=== PATIENT | female | born 1945 | race Caucasian/White ===

== ENCOUNTER 2018-02-05 13:11 | Outpatient (CLI) | payer MEDICARE, BC ==
--- NOTE | 2018-02-05 15:22 | XRAY Report ---
TWO VIEW CHEST: 02/05/2018 COMPARISON: No comparison. INDICATION: Shortness of breath and cough. TECHNIQUE: Two views. FINDINGS: Clear lungs. No pneumothorax or pleural effusion. Mediastinum unremarkable. IMPRESSION: NO EVIDENCE OF ACUTE THORACIC PROCESS. TD: 02/05/2018 15:21 MTDD
== END 2018-02-05 13:12 | disposition home or self-care (01) ==
LOC: DI.S 13:11
PROVIDERS: ATTEND Nurse Practitioner Family
DX: R05 Cough (principal); R06.02 Shortness of breath
CPT/HCPCS: 71046

== ENCOUNTER 2020-04-04 22:19 | Outpatient (CLI) | payer MEDICARE, BC | END 2020-04-04 22:20 | disposition critical access hospital (66) | LOC: EMS 22:19 | PROVIDERS: ATTEND Surgery | DX: R00.2 Palpitations (principal); R00.0 Tachycardia, unspecified | CPT/HCPCS: A0425; A0427 ==

== ENCOUNTER 2020-04-04 22:47 | Observation (INO) | payer MEDICARE, BC ==
--- NOTE | 2020-04-04 22:49 | ED Physician Documentation ---
History of Present Illness - Stated complaint Stated Complaint: AFIB - History obtained from History obtained from: Patient (Patient is a 74-year-old female with a chief complaint of palpitations. Patient was brought in by EMS EMS reports when they arrived she was in A. fib with RVR with a heart rate in the 180s she was given approximately 15 mg of IV diltiazem patient reports a history of atrial fibrillation x1 that has spontaneously resolved. She denies any syncopal episode she does report some chest pain some shortness of breath denies any history of pulmonary embolism or DVT.) Review of Systems Constitutional: reports: Reviewed and negative Eyes: reports: Reviewed and negative Ears: reports: Reviewed and negative Nose: reports: Reviewed and negative Throat: reports: Reviewed and negative Cardiac: reports: Chest pain / pressure, Palpitations Respiratory: reports: Dyspnea GI: reports: Reviewed and negative : reports: Reviewed and negative Skin: reports: Reviewed and negative Musculoskeletal: reports: Reviewed and negative Neurologic: reports: Reviewed and negative Psychiatric: reports: Reviewed and negative Endocrine: reports: Reviewed and negative Immunocompromised: reports: Reviewed and negative PD PAST MEDICAL HISTORY - Present Medications Home Medications: Ambulatory Orders Medication Instructions Recorded Confirmed No Known Home Medications 04/04/20 04/04/20 - Allergies Allergies/Adverse Reactions: Allergies Allergy/AdvReac Type Severity Reaction Status Date / Time melon Allergy Anaphylaxis Verified 04/05/20 05:59 amoxicillin AdvReac Itching Verified 04/05/20 05:59 PD ED PE NORMAL - Vitals Vital signs reviewed: Yes - General General: Alert and oriented X 3, No acute distress, Well developed/nourished - HEENT HEENT: Atraumatic, PERRL - Neck Neck: Supple, no meningeal sign, No JVD - Cardiac Cardiac: Other (Irregularly irregular and tachycardic) - Respiratory Respiratory: No respiratory distress, Clear bilaterally - Abdomen Abdomen: Normal bowel sounds, Soft, Non tender, Non distended - Derm Derm: Warm and dry - Extremities Extremities: No deformity - Neuro Neuro: Alert and oriented X 3, sql data architect 2-12 intact, No motor deficit, No sensory deficit, Normal speech - Psych Psych: Normal mood, Normal affect Results - Vitals Vitals: Oxygen O2 Source Room air - EKG (time done) 22:54 Rate: Other (no stemi, a fib) - Labs Labs: Laboratory Tests 04/04/20 04/04/20 04/04/20 23:01 23:08 23:08 WBC 6.9 RBC 4.42 Hgb 13.7 Hct 43.1 MCV 97.5 MCH 31.0 MCHC 31.8 L RDW 12.8 Plt Count 184 MPV 10.4 Neut # (Auto) 4.5 Lymph # (Auto) 1.6 [place] # (Auto) 0.7 Eos # (Auto) 0.1 Baso # (Auto) 0.0 Absolute Nucleated RBC 0.00 Nucleated RBC % 0.0 PT 12.0 INR 1.1 APTT 28.5 Sodium Potassium Chloride Carbon Dioxide Anion Gap BUN Creatinine Estimated GFR (MDRD) Glucose Calcium Total Bilirubin AST ALT Alkaline Phosphatase Total Creatine Kinase Troponin I High Sens B-Natriuretic Peptide Total Protein Albumin Globulin Albumin/Globulin Ratio Lipase TSH Urine Color YELLOW Urine Clarity CLEAR Urine pH 7.5 Ur Specific [place] 1.010 Urine Protein NEGATIVE Urine Glucose (UA) NEGATIVE Urine Ketones NEGATIVE Urine Occult Blood NEGATIVE Urine Nitrite NEGATIVE Urine Bilirubin NEGATIVE Urine Urobilinogen 0.2 (NORMAL) Ur Leukocyte Esterase NEGATIVE Ur Microscopic Review NOT INDICATED Urine Culture Comments NOT INDICATED Urine Opiates Screen NEGATIVE Ur Oxycodone Screen NEGATIVE Urine Methadone Screen NEGATIVE Ur Propoxyphene Screen NEGATIVE Ur Barbiturates Screen NEGATIVE Ur Tricyclics Screen NEGATIVE Ur Phencyclidine Scrn NEGATIVE Ur Amphetamine Screen NEGATIVE U Methamphetamines Scrn NEGATIVE U Benzodiazepines Scrn NEGATIVE Urine Cocaine Screen NEGATIVE U Cannabinoids Screen NEGATIVE Ethyl Alcohol 04/04/20 04/04/20 04/04/20 23:08 23:08 23:08 WBC RBC Hgb Hct MCV MCH MCHC RDW Plt Count MPV Neut # (Auto) Lymph # (Auto) [place] # (Auto) Eos # (Auto) Baso # (Auto) Absolute Nucleated RBC Nucleated RBC % PT INR APTT Sodium 139 Potassium 3.8 Chloride 106 Carbon Dioxide 23 Anion Gap 10.0 BUN 12 Creatinine 0.5 Estimated GFR (MDRD) 120 Glucose 100 Calcium 9.2 Total Bilirubin 0.9 AST 22 ALT 16 Alkaline Phosphatase 84 Total Creatine Kinase 70 Troponin I High Sens 2.6 B-Natriuretic Peptide 41 Total Protein 6.7 Albumin 4.1 Globulin 2.6 Albumin/Globulin Ratio 1.6 Lipase 28 TSH Urine Color Urine Clarity Urine pH Ur Specific [place] Urine Protein Urine Glucose (UA) Urine Ketones Urine Occult Blood Urine Nitrite Urine Bilirubin Urine Urobilinogen Ur Leukocyte Esterase Ur Microscopic Review Urine Culture Comments Urine Opiates Screen Ur Oxycodone Screen Urine Methadone Screen Ur Propoxyphene Screen Ur Barbiturates Screen Ur Tricyclics Screen Ur Phencyclidine Scrn Ur Amphetamine Screen U Methamphetamines Scrn U Benzodiazepines Scrn Urine Cocaine Screen U Cannabinoids Screen Ethyl Alcohol < 5.0 04/04/20 23:08 WBC RBC Hgb Hct MCV MCH MCHC RDW Plt Count MPV Neut # (Auto) Lymph # (Auto) [place] # (Auto) Eos # (Auto) Baso # (Auto) Absolute Nucleated RBC Nucleated RBC % PT INR APTT Sodium Potassium Chloride Carbon Dioxide Anion Gap BUN Creatinine Estimated GFR (MDRD) Glucose Calcium Total Bilirubin AST ALT Alkaline Phosphatase Total Creatine Kinase Troponin I High Sens B-Natriuretic Peptide Total Protein Albumin Globulin Albumin/Globulin Ratio Lipase TSH 3.03 Urine Color Urine Clarity Urine pH Ur Specific [place] Urine Protein Urine Glucose (UA) Urine Ketones Urine Occult Blood Urine Nitrite Urine Bilirubin Urine Urobilinogen Ur Leukocyte Esterase Ur Microscopic Review Urine Culture Comments Urine Opiates Screen Ur Oxycodone Screen Urine Methadone Screen Ur Propoxyphene Screen Ur Barbiturates Screen Ur Tricyclics Screen Ur Phencyclidine Scrn Ur Amphetamine Screen U Methamphetamines Scrn U Benzodiazepines Scrn Urine Cocaine Screen U Cannabinoids Screen Ethyl Alcohol PD MEDICAL DECISION MAKING - ED course Complexity details: reviewed results, re-evaluated patient, considered differential (Paroxysmal atrial fibrillation), d/w patient (patient did have outpatient CTA of chest in january that showed thoracic aortic aneurysm of 5.2 cm, cta of chest shows no pe, dopp le shows dvt, repeat cta of chest shows 5.5 cm thoracic aortic aneurysm. case d/w dr. murry who will admit this patient. ) - Consults Consults: Discussed case with (dr. murry. will accept patient for admission.) Departure - Departure Disposition: ED Place in Observation Clinical Impression: Atrial fibrillation with RVR DVT (deep venous thrombosis) Qualifiers: DVT location: lower extremity Affected thrombotic vein of extremity: peroneal Chronicity: acute Laterality: right Qualified Code(s): I82.451 - Acute embolism and thrombosis of right peroneal vein Thoracic aortic aneurysm Qualifiers: Presence of rupture: without rupture Qualified Code(s): I71.2 - Thoracic aortic aneurysm, without rupture Condition: Fair Discharge Date/Time: 04/05/20 03:50
[2020-04-04] MEDS ORDERED: SODIUM CHLORIDE 0.9% 1,000 ML IV ONE (22:57)
[2020-04-04 23:09] LABS: MUDS CUTOFF CONCENTRATIONS CUTOFF CONC BELOW:
[2020-04-04 23:11] LABS: BILIRUBIN,URINE NEGATIVE (NEGATIVE); GLUCOSE, URINE (UA) NEGATIVE (NEGATIVE); KETONES,URINE (UA) NEGATIVE (NEGATIVE); LEUKOCYTE ESTERASE, URINE NEGATIVE (NEGATIVE); NITRITE,URINE NEGATIVE (NEGATIVE); OCCULT BLOOD,URINE NEGATIVE (NEGATIVE); PH,URINE 7.5 PH (5.0-7.5); PROTEIN,URINE NEGATIVE (NEGATIVE); UROBILINOGEN,URINE 0.2 (NORMAL) E.U./dL (NORMAL)
[2020-04-04 23:12] LABS: CLARITY,URINE CLEAR (CLEAR)
[2020-04-04 23:26] LABS: AMPHETAMINE SCREEN,URINE NEGATIVE (NEGATIVE); BENZODIAZEPINES SCREEN, URINE NEGATIVE (NEGATIVE); COCAINE SCREEN URINE NEGATIVE (NEGATIVE); METHADONE SCREEN, URINE NEGATIVE (NEGATIVE); METHAMPHETAMINES SCREEN, URINE NEGATIVE (NEGATIVE); OPIATE SCREEN, URINE NEGATIVE (NEGATIVE); OXYCODONE SCREEN, URINE NEGATIVE (NEGATIVE); PROPOXYPHENE SCREEN, URINE NEGATIVE (NEGATIVE); TRICYCLIC ANTIDEPRESSANT,URINE NEGATIVE (NEGATIVE)
[2020-04-04 23:27] LABS: BASOPHILS % (AUTO) 0.3 %; EOSINOPHILS # (AUTO) 0.1 10^3/uL (0.0-0.7); EOSINOPHILS % (AUTO) 1.4 %; HGB - HEMOGLOBIN 13.7 g/dL (12.0-16.0); LYMPHOCYTES # (AUTO) 1.6 10^3/uL (1.5-3.5); LYMPHOCYTES % (AUTO) 23.4 %; MEAN CORPUSCULAR HGB CONC 31.8 g/dL (32.0-36.0); MEAN CORPUSCULAR VOLUME 97.5 fL (81.0-99.0); MEAN PLATELET VOLUME 10.4 fL (7.9-10.8); MONOCYTES # (AUTO) 0.7 10^3/uL (0.0-1.0); NEUTROPHILS # (AUTO) 4.5 10^3/uL (1.5-6.6); NEUTROPHILS % (AUTO) 64.6 %; PLT - PLATELET COUNT 184 10^3/uL (130-450); RED BLOOD COUNT 4.42 10^6/uL (4.20-5.40); RED CELL DISTRIBUTION WIDTH 12.8 % (12.0-15.0); WHITE BLOOD COUNT 6.9 x10^3/uL (4.8-10.8)
[2020-04-04 23:33] LABS: INR 1.1 (0.8-1.2)
--- NOTE | 2020-04-04 23:34 | XRAY Report ---
Reason: sob Procedure Date: 04/04/2020 Accession Number: [id number] / [id number] Procedure: XR - Chest 1 View X-Ray CPT Code: 57055 Final Report FULL RESULT: EXAM: CHEST RADIOGRAPHY EXAM DATE: 04/04/2020 11:18 PM. CLINICAL HISTORY: Shortness of breath. Atrial fibrillation. COMPARISON: 02/05/2018. TECHNIQUE: 1 view. FINDINGS: Lungs/Pleura: No focal opacities evident. No pleural effusion. No pneumothorax. Mediastinum: Within exam limitations, the cardiomediastinal contour is normal. Other: Endplate spurring is in the thoracic spine. There is a mild leftward thoracic curvature as before. IMPRESSION: No acute findings. RADIA
[2020-04-04 23:37] LABS: ALBUMIN 4.1 g/dL (3.2-5.5); ALBUMIN/GLOBULIN RATIO 1.6 (1.0-2.2); ALKALINE PHOSPHATASE 84 IU/L (42-121); ALT ALANINE AMINOTRANSFERASE 16 IU/L (10-60); AST ASPARTATE AMINOTRANSFERASE 22 IU/L (10-42); BILIRUBIN,TOTAL 0.9 mg/dL (0.2-1.0); BUN - BLOOD UREA NITROGEN 12 mg/dL (6-20); CALCIUM 9.2 mg/dL (8.5-10.3); CARBON DIOXIDE - CO2 23 mmol/L (21-32); CHLORIDE 106 mmol/L (101-111); CK- CREATINE KINASE 70 IU/L (22-269); CREATININE 0.5 mg/dL (0.4-1.0); GLUCOSE 100 mg/dL (70-100); LIPASE 28 U/L (22-51); SODIUM 139 mmol/L (135-145); TOTAL PROTEIN 6.7 g/dL (6.7-8.2)
[2020-04-04 23:41] LABS: PARTIAL THROMBOPLASTIN TIME 28.5 secs (24.9-33.3)
[2020-04-04] MEDS ORDERED: DILTIAZEM 50 MG/10 ML VIAL IVP ONE (23:59)
[2020-04-05] MEDS ORDERED: IOVERSOL 320 100 ML VIAL IVP ONE ×2 (01:19→01:52)
--- NOTE | 2020-04-05 02:21 | CT Report ---
Reason: pe Procedure Date: 04/05/2020 Accession Number: [id number] / [id number] Procedure: CT - ANGIO CHEST W/WO CPT Code: Final Report FULL RESULT: EXAM: CT ANGIOGRAM CHEST EXAM DATE: 04/05/2020 01:50 AM. CLINICAL HISTORY: Short of breath. COMPARISON: CHEST 1 VIEW 04/04/2020 10:58 PM CHEST 2 VIEW 02/05/2018 1:24 PM. TECHNIQUE: Routine helical imaging was performed through the chest in the pulmonary arterial phase. IV Contrast: Yes. Reconstructions: Coronal 3-D MIP reconstructions.Sagittal and coronal. In accordance with CT protocol optimization, one or more of the following dose reduction techniques were utilized for this exam: automated exposure control, adjustment of mA and/or KV based on patient size, or use of iterative reconstructive technique. FINDINGS: Pulmonary Arteries: Technically adequate for evaluation through the segmental arteries. No evidence for acute or chronic pulmonary emboli. Lungs/Pleura: No pneumonia, suspicious nodules, or edema. Mild scarring/atelectasis bilaterally. No effusions or pneumothorax. Mediastinum: Ascending thoracic aortic aneurysm up to 5.5 cm at the level of the main pulmonary artery but without definite acute aortic syndrome. Aorta is not well opacified. No cardiac enlargement. No adenopathy. Upper Abdomen: Unremarkable. Other: None. IMPRESSION: 1. No pulmonary emboli. 2. Ascending thoracic aortic aneurysm up to 5.5 cm but without definite acute aortic syndrome. Aorta is not well opacified. RADIA
--- NOTE | 2020-04-05 02:37 | PROVIDER PROGRESS NOTE ---
[facility] Pharmacy Technician Note - Diploma Pharmacy Technician Note Diploma Pharmacy Technician Note: I was asked by Dr Beard to assess this patient for admission. The patient is a 74-year-old female who presented to the ED with complaint of feeling dyspneic after dinner and a feeling of her heart pounding. She took her pulse and blood pressure around 7:15 PM on April 04, 2020 and her heart rate was 163 and her blood pressure was 118/74. She drank some water and when she rechecked her heart rate it was 120.Her called EMS and she was brought to the emergency room. At bedside she tells me she has been experiencing some chest heaviness, and discomfort. She denied any stabbing chest pain. She denied abdominal pain, nausea, vomiting, fever or chills. She reports frequent heartburn. In the ED she was found to be in atrial fibrillation with rapid ventricular rate. She reports experiencing this once before. She was given a dose of diltiazem IV which improved her heart rate to 107. At the time of my evaluation her heart rate fluctuated between 80 and 90. On further inquiry and exam her left leg appears larger than the right 1. 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 She had a CT angiogram of the chest done in January 2020 which showed an abdominal aortic aneurysm of 5.2 cm. She also had a 2D echo done at the same time. These were done at [place] where she sees a meat inspector. She also had lower extremity Venous Dopplers done in November 2019 which were negative for any thrombosis. Patient's work up in the ED included a BMP, CBC, troponin, BNP,Urinalysis, Coags and Toxicology done which were all normal. The patient does not use tobacco products or illicit drugs. She drinks a glass of wine daily. She does not take any medications. Her only surgery has been an appendectomy. Currently the patient's vitals are stable with a blood pressure of 120/69, Heart rate 85,Respiratory rate 15, oxygen saturation 96% on room air and temperature 36.6 C. I advised that the patient have a CT angiogram of the chest and lower extremity Dopplers to rule out a pulmonary embolism. If these are negative advise, that the patient be transferred for a stress test in light of her chest heaviness. The patient has a heart score of 4 owing to her age, moderate suspicion of heart disease and family history of heart disease. Given a recent 2D echocardiogram done 2 months ago in January 2020. There likely will been no added information in repeating one. Given a ChadVasc score of 3 the patient would need to be on an oral anticoagulant. She would also need to be on a rate controlling medication. Advised follow-up with her primary care physician and her meat inspector as soon as possible next week. The above recommendations were discussed with the patient and with Dr. Beard
--- NOTE | 2020-04-05 03:04 | Ultrasound Report ---
Reason: Bilateral lower extremity swelling Procedure Date: 04/05/2020 Accession Number: [id number] / [id number] Procedure: US - Duplex Ext Veins Bilateral CPT Code: Final Report FULL RESULT: EXAM: BILATERAL LOWER EXTREMITY VENOUS ULTRASOUND EXAM DATE: 04/05/2020 02:42 AM. CLINICAL HISTORY: Bilateral lower extremity swelling. COMPARISON: ANGIO CHEST W/WO 04/05/2020 1:36 AM. TECHNIQUE: Real-time sonographic vascular imaging was performed by the producer arborist manager through the lower extremities utilizing both color-flow and Doppler spectral analysis. Multiple site safety representative static images were saved for review. FINDINGS: Right: Common Femoral Vein (CFV): Normal. CFV-GSV Junction: Normal. Profunda Femoral Vein (PFV): Normal. Femoral Vein (FV) Prox: Normal. Femoral Vein (FV) Mid: Normal. Femoral Vein (FV) Dist: Normal. Popliteal Vein: Normal. Posterior Tibial Veins: Normal. Peroneal Veins: Thrombosed. Left: Common Femoral Vein (CFV): Normal. CFV-GSV Junction: Normal. Profunda Femoral Vein (PFV): Normal. Femoral Vein (FV) Prox: Normal. Femoral Vein (FV) Mid: Normal. Femoral Vein (FV) Dist: Normal. Popliteal Vein: Normal. Posterior Tibial Veins: Normal. Peroneal Veins: Normal. Other: None. IMPRESSION: 1. Right peroneal calf vein thrombosis. 2. No evidence for deep venous thrombosis bilaterally in the thighs. RADIA The critical result notification system was initiated by Dr. Ubaldo Burk at 03:00 AM on 04/05/2020. The above critical result findings were discussed with Bryant Beard by Dr. Ubaldo Burk at 03:03 AM on 04/05/2020.
[2020-04-05] MEDS ORDERED: SODIUM CHLORIDE FLUSH 0.9% 10 ML SYRINGE IVP PRN (03:16)
[2020-04-05] MEDS ORDERED: diltiaZEM CD 120 MG CAPSULE PO STA (03:25)
--- NOTE | 2020-04-05 03:34 | HISTORY & PHYSICAL EXAMINATION ---
Chief Complaint - Chief Complaint Chief Complaint: chest heaviness, pounding heart rate History of Present Illness - Admitted From Admitted From:: [facility] ED - History Obtained From Records Reviewed: yes History obtained from: patient Exam Limitations: none - History of Present Illness HPI Comment/Other: The patient is a 74-year-old female who presented to the ED with complaint of feeling dyspneic after dinner and a feeling of her heart pounding. She took her pulse and blood pressure around 7:15 PM on April 04, 2020 and her heart rate was 163 and her blood pressure was 118/74. She drank some water and when she rechecked her heart rate it was 120. Her called EMS and she was brought to the emergency room. At bedside she tells me she has been experiencing some chest heaviness, and discomfort. She denied any stabbing chest pain. She denied abdominal pain, nausea, vomiting, fever or chills. She reports frequent heartburn. In the ED she was found to be in atrial fibrillation with rapid ventricular ra te. She reports experiencing this once before. She was given a dose of diltiazem IV which improved her heart rate to 107. At the time of my evaluation her heart rate fluctuated between 80 and 90. On further inquiry and exam her left leg appears larger than the right one. 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 She had a CT angiogram of the chest done in January 2020 which showed an abdominal aortic aneurysm of 5.2 cm. She also had a 2D echo done at the same time. These were done at [place] where she sees a equipment services associate. She also had lower extremity Venous Dopplers done in November 2019 which were negative for any thrombosis. Patient's work up in the ED included a BMP, CBC, troponin, BNP,Urinalysis, Coags and Toxicology done which were all normal. CT Angio of the chest done today was negative for PE but showed the AAA at 5.5cm. Lower extremity Dopplers done today showed a right DVT. She is being admitted for chest pain rule out History - Past Medical History Cardiovascular: reports: Atrial fibrillation MRSA Hx?: No - Past Surgical History General: reports: Appendectomy - Family & Social History Family History: Father: CAD (CABG) Family History Comment/Other: Father: CAD, Had a CABG. Mother: CHF. Brother 1: espohageal cancer. Brother 2; Atrial fibrillation s/p ablation Social History Notes: Patient lives at home with her . She does not smoke, or use illicit drugs. She drinks 1 glass of wine daily. - POLST Patient has POLST: No POLST Status: Full Code Meds/Allgy - Home Medications Home Medications: Ambulatory Orders Medication Instructions Recorded Confirmed No Known Home Medications 04/04/20 04/04/20 - Allergies Allergies/Adverse Reactions: Allergies Allergy/AdvReac Type Severity Reaction Status Date / Time No Known Drug Allergies Allergy Verified 04/04/20 22:59 Review of Systems - Constitutional Constitutional: denies: Fatigue, Fever, Chills - Eyes Eyes: denies: Pain, Dipolpia - Ears, Nose & Throat Ears, Nose & Throat: denies: Vertigo, Sore throat - Cardiovascular Cariovascular: reports: Irregular heart rate, Palpitations, Chest pain (chest heaviness). denies: Lightheadedness, Syncope, Exertional dyspnea - Respiratory Respiratory: reports: SOB at rest. denies: Wheezing - Gastrointestinal Gastrointestinal: reports: Reflux/heartburn. denies: Abdominal pain, Abdominal distention, Constipation, Nausea, Vomiting - Genitourinary Genitourinary: denies: Dysuria, Frequency, Urgency - Musculoskeletal Musculoskeletal: denies: Muscle pain, Back pain, Muscle aches - Integumentary Integumentary: denies: Rash, Pruritis, Lesions - Neurological Neurological: denies: General weakness, Focal weakness, Headache, Dizziness - Psychiatric Psychiatric: denies: Depression, Anxiety - Endocrine Endocrine: denies: Polyuria, Polydypsia - Hematologic/Lymphatic Hematologic/Lymphatic: denies: Anemia, Bruising, Petechiae Prior Level of Functionality: She is independent of activities of daily living Exam - Vital Signs Vital Signs: Vital Signs x48h Temp Pulse Resp BP Pulse Ox 04/05/20 02:40 96 16 125/84 H 94 04/05/20 01:01 85 15 120/69 96 04/04/20 23:33 107 H 18 116/85 H 98 04/04/20 22:49 36.6 C 125 H 18 136/79 H 96 - Physical Exam General Appearance: positive: No acute distress, Alert Eyes Bilateral: positive: PERRL, EOMI ENT: positive: No signs of dehydration Neck: positive: No JVD, Trachea midline Respiratory: positive: Chest non-tender, No respiratory distress, Breath sounds nml. negative: Wheezes, Rales, Rhonchi Cardiovascular: positive: No murmur, Irregularly irregular, Tachycardia Abdomen: positive: Non-tender, No organomegaly, Nml bowel sounds, No distention. negative: Guarding, Rebound Back: positive: Nml inspection Skin: positive: Color nml, No rash, Warm Extremities: positive: Non-tender, Full ROM, Nml appearance, Other (legs appear swollen. L>R) Neurologic/Psychiatric: positive: Oriented x3, CN's nml (2-12), Motor nml, Mood/affect nml Conclusion/Plan - Problem List (1) Chest pain Conclusion/Plan: Patient has a heart score of 4. Troponin has been negative so far. We will trend times tomorrow. If negative will proceed with stress test. (2) Atrial fibrillation with RVR Conclusion/Plan: Etiology undetermined. Patient was given 1 dose of diltiazem 0.5 mg IV x1 in the ED. Heart rate improved from 120 to 107 and then to 87. Patient's heart rate currently fluctuating between 80 and 90. Diltiazem CD 120 mg daily ordered. Patient has ChadVasc score of 3. Consequently she is being started on Eliquis 5 mg p.o. twice daily. Patient had a 2D echocardiogram done in January 2020. As a result it would not be repeated at this time. TSH was normal. CT [facility] of the chest was negative for PE. (3) DVT (deep venous thrombosis) Conclusion/Plan: Patient has been started on Eliquis 5 mg p.o. twice daily. Qualifiers: DVT location: lower extremity Affected thrombotic vein of extremity: peroneal Chronicity: acute Laterality: right Qualified Code(s): I82.451 - Acute embolism and thrombosis of right peroneal vein (4) AAA (abdominal aortic aneurysm) Conclusion/Plan: In January the aneurysm measured 5.[address] angiogram of the chest done today it measured 5.5 cm. Patient would need to follow-up with cardiology and then referred to cardiothoracic surgery. Qualifiers: Presence of rupture: without rupture Qualified Code(s): I71.4 - Abdominal aortic aneurysm, without rupture - Lab Results Fish Bones: 04/04/20 23:08 04/04/20 23:08 Core Measures - Anticipated LOS I expect patient to be DC'd or transferred within 96 hours.: Yes - DVT/VTE - Prophylaxis VTE/DVT Device ordered at admit?: No Not Ordered - Medical Reason: Contraindicated VTE/DVT Prophylaxis med ordered at admit?: Yes
[2020-04-05 05:47] LABS: BASOPHILS % (AUTO) 0.3 %; EOSINOPHILS % (AUTO) 0.6 %; LYMPHOCYTES # (AUTO) 1.4 10^3/uL (1.5-3.5); LYMPHOCYTES % (AUTO) 23.1 %; MEAN CORPUSCULAR HEMOGLOBIN 32.1 pg (27.0-31.0); MEAN CORPUSCULAR HGB CONC 32.6 g/dL (32.0-36.0); MEAN CORPUSCULAR VOLUME 98.5 fL (81.0-99.0); MEAN PLATELET VOLUME 10.4 fL (7.9-10.8); MONOCYTES # (AUTO) 0.7 10^3/uL (0.0-1.0); MONOCYTES % (AUTO) 10.8 %; PLT - PLATELET COUNT 173 10^3/uL (130-450); RED BLOOD COUNT 4.05 10^6/uL (4.20-5.40); RED CELL DISTRIBUTION WIDTH 12.8 % (12.0-15.0); WHITE BLOOD COUNT 6.2 x10^3/uL (4.8-10.8)
[2020-04-05 05:50] LABS: CALCIUM 8.8 mg/dL (8.5-10.3); CREATININE 0.4 mg/dL (0.4-1.0)
[2020-04-05] MEDS ORDERED: PANTOPRAZOLE 40 MG TABLET PO SCH (07:00)
--- NOTE | 2020-04-05 08:50 | PHARMACY PROGRESS NOTE ---
- Best Possible Medication History Admit Date and Time: 04/05/206 Processed by: Nursing Medication History completed: Yes As the person ultimately responsible for medication therapy, providers are able to order a medication from an existing home medication list in [facility] via the "Reconcile Routine" prior to Confirmation of that medication by integrated logistics support manager. Such practice is discouraged except when the physician, in their clinical judgment, deems that a medical need exists for a medication without regard to previous use.
[2020-04-05] MEDS ORDERED: APIXABAN 5 MG TABLET PO SCH (09:00)
[2020-04-05] MEDS ORDERED: SODIUM CHLORIDE FLUSH 0.9% 10 ML SYRINGE IVP SCH (09:00)
[2020-04-05 12:58] VITALS: BP 109/59
--- NOTE | 2020-04-05 13:23 | Discharge Plan ---
Discharge Plan Problem Reviewed?: Yes Disposition: 02 Transfer Acute Care Hosp Condition: Fair No Smoking: If you smoke, Please STOP! Call for help. Follow-up with: ARIES ZUÑIGA I [Primary Care Provider] -
--- NOTE | 2020-04-05 13:25 | DISCHARGE SUMMARY ---
Discharge Summary Admit Date: 04/05/20 Discharge Date: 04/05/20 Discharging Provider: Dr Cyn Cox Primary Care Provider: Dr Glenis Grijalva Code Status: Attempt Resuscitation Condition at Discharge: Fair Discharge Disposition: 02 Transfer Acute Care Hosp Discharge Facility Name: [facility] History of Present Illness: As per admission H&P of Dr Armen Cruz: The patient is a 74-year-old female who presented to the ED with complaint of feeling dyspneic after dinner and chest pressure and a feeling of her heart pounding. She took her pulse and blood pressure around 7:15 PM on April 04, 2020 and her heart rate was 163 and her blood pressure was 118/74. She drank some water and when she rechecked her heart rate it was 120. Her called EMS and she was brought to the emergency room. At bedside she tells me she has been experiencing some chest heaviness, and discomfort. She denied any stabbing ch est pain. She denied abdominal pain, nausea, vomiting, fever or chills. She reports frequent heartburn. 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 She did not go to an ER then. The symptoms resolved in a day. She was referred for cardiac evaluation, saw Dr Robert Boggs and had a Holter taht was benign, a CT angiogram of the chest done in January 2020 which showed a thoracic aortic aneurysm of 5.2 cm. diameter and an Echo that showed normal LVEF and mild aortic regurgitation. Her father had a history of aortic aneurysm and CAD, several family members have Afib. She also had previous lower extremity venous Dopplers done in November 2019 when she complained of bilateral posterior thigh pain, which were negative for any thrombosis. In the ED here she was found to be in atrial fibrillation with rapid ventricular rate and she was given a dose of diltiazem IV which improved her heart rate to 107. At the time of my evaluation her heart rate fluctuated between 80 and 90. On further inquiry and exam her left leg appears larger than the right one. 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 Patient's work up in the ED included a BMP, CBC, troponin, BNP, Urinalysis, Coags and Toxicology done which were all normal. CT Angio of the chest done with PE protocol was negative for PE but showed the ascending thoracic aortic aneurysm at 5.5cm. Lower extremity Dopplers done today showed a right peroneal DVT. She was placed in Observation status to evaluate the chest pain. - HOSPITAL COURSE Hospital Course: 1) Ascending thoracic aortic aneurysm There was an increase in size of the ascending aortic diameter found. Due to risk of rupture, at this size, no anticoagulation was started for the DVT. The Hospitalist reached out to her Camera Engineer, Dr Boggs, and spoke to his covering Camera Engineer (it being a Monday), Dr Rojas, for transfer to a facility with higher level of care and available Cardiology and Cardiothoracic surgery specialists, and she was kindly accepted and was transferred to [facility] by ambulance in stable condition. 2) Afib with RVR She was started on Cardizem for rate control, and her heart rate improved to 65- 80, but she remained in Afib. Due to risk of rupture of the large TAA, no anticoagulation was started. 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 Due to risk of rupture of the large TAA, no anticoagulation was started for treating the DVT, instead urgent transfer was undertaken. 4) Chest pain There was no further chest pain. Her troponin results were normal at: 2.6>> 3.4>> 4.4. - ALLERGIES Allergies/Adverse Reactions: Allergies Allergy/AdvReac Type Severity Reaction Status Date / Time melon Allergy Anaphylaxis Verified 04/05/20 05:59 amoxicillin AdvReac Itching Verified 04/05/20 05:59 - MEDICATIONS Home Medications: Ambulatory Orders Medication Instructions Recorded Confirmed No Known Home Medications 04/04/20 04/04/20 - PHYSICAL EXAM AT DISCHARGE General Appearance: positive: No acute distress, Alert Eyes Bilateral: positive: Normal inspection, PERRL ENT: positive: ENT inspection nml, No signs of dehydration Neck: positive: Nml inspection, No JVD Respiratory: positive: No respiratory distress, Breath sounds nml Cardiovascular: positive: Irregularly irregular, Systolic murmur, Diastolic murmur Abdomen: positive: No distention Skin: positive: Color nml Extremities: positive: Non-tender, No pedal edema Neurologic/Psychiatric: positive: Oriented x3, Other (Finger numbness) - LABS Result Diagrams: 04/05/20 05:15 04/05/20 05:15 - DIAGNOSTIC IMAGING Diagnostic Imaging Results: Final report reviewed - FOLLOW UP Follow Up: This will be determined after her hospitalization at [facility]. - TIME SPENT Time Spent in Discharge (Minutes): 60
[2020-04-06] MEDS ORDERED: diltiaZEM CD 120 MG CAPSULE PO SCH (09:00)
== END 2020-04-05 14:03 | disposition short-term general hospital (02) ==
LOC: ED 22:47 → MS2 04-05 03:16
PROVIDERS: ADMIT Internal Medicine; ATTEND Internal Medicine
DX: I71.2 Thoracic aortic aneurysm, without rupture (principal); I82.451 Acute embolism and thrombosis of right peroneal vein; I48.91 Unspecified atrial fibrillation
CPT/HCPCS: 36415; 71045; 71275; 80048; 80053; 81003; 82550; 83690; 83880; 84443; 84484; 85025; 85610; 85730; 93005; 93970; 96361; 96374; 99284; 99285; A9270; G0378; Q9967; 80306; 80320; 81001; 87086

== ENCOUNTER 2020-04-05 14:05 | Outpatient (CLI) | payer MEDICARE, BC | END 2020-04-05 14:06 | disposition short-term general hospital (02) | LOC: EMS 14:05 | PROVIDERS: ATTEND Surgery | DX: I48.91 Unspecified atrial fibrillation (principal); I71.2 Thoracic aortic aneurysm, without rupture; R07.9 Chest pain, unspecified; I82.409 Acute embolism and thrombosis of unspecified deep veins of unspecified lower extremity | CPT/HCPCS: A0425; A0426 ==

== ENCOUNTER 2020-09-28 19:58 | Outpatient (CLI) | payer MEDICARE, BC | END 2020-09-28 19:59 | disposition short-term general hospital (02) | LOC: EMS 19:58 | PROVIDERS: ATTEND Surgery | DX: R10.9 Unspecified abdominal pain (principal) | CPT/HCPCS: A0425; A0427 ==

== ENCOUNTER 2020-10-24 17:19 | Emergency (ER) | payer MEDICARE, BC ==
[2020-10-24] MEDS ORDERED: ONDANSETRON 4 MG/2 ML VIAL IVP STA (17:49)
[2020-10-24] MEDS ORDERED: HYDROmorphone 1 MG/ML CARPUJECT IVP STA (17:49)
--- NOTE | 2020-10-24 17:51 | ED Physician Documentation ---
PD HPI ABD PAIN - Stated complaint Stated Complaint: ABD PX - Chief complaint Chief Complaint: Abd Pain - History obtained from History obtained from: Patient - Additional information Additional information: 75-year-old woman who on the seventh of this month had a complicated procedure the [facility]. 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 Incidentally found to have gallbladder sludge. Over the last 2 days has developed severe lower abdominal pain with an sensation of having to have a bowel movement with not much output despite laxatives. She has nausea but no vomiting. She had her last colonoscopy about a year ago which she thinks was positive for diverticula. Review of Systems Ten Systems: 10 systems reviewed and negative Constitutional: denies: Fever, Chills, Myalgias, Fatigue Cardiac: denies: Chest pain / pressure, Palpitations Respiratory: denies: Dyspnea, Cough PD PAST MEDICAL HISTORY - Past Medical History Cardiovascular: Deep vein thrombosis, Atrial fibrillation Neuro: Peripheral neuropathy GI: GERD Psych: Anxiety Musculoskeletal: Osteoarthritis - Past Surgical History Past Surgical History: Yes General: Appendectomy - Present Medications Home Medications: Ambulatory Orders Medication Instructions Recorded Confirmed HYDROcod/ACETAM 5/325 [[place] 5/325] 1 - 2 tab PO Q6H PRN #15 tablet 10/24/20 - Allergies Allergies/Adverse Reactions: Allergies Allergy/AdvReac Type Severity Reaction Status Date / Time melon Allergy Anaphylaxis Verified 10/24/20 17:33 amoxicillin AdvReac Itching Verified 10/24/20 17:33 - Social History Does the pt smoke?: No Smoking Status: Never smoker Does the pt drink ETOH?: Yes Does the pt have substance abuse?: No - POLST Patient has POLST: No POLST Status: Full Code PD ED PE NORMAL - Vitals Vital signs reviewed: Yes - General General: Alert and oriented X 3, No acute distress - HEENT HEENT: PERRL, EOMI - Neck Neck: Supple, no meningeal sign, No bony TTP - Cardiac Cardiac: RRR, No murmur - Respiratory Respiratory: No respiratory distress, Clear bilaterally - Abdomen Abdomen: Other (Severe tenderness in the low abdomen with some guarding, does not seem to lateralize. Hyperactive bowel tones.) - Back Back: No CVA TTP, No spinal TTP - Derm Derm: Normal color, Warm and dry - Extremities Extremities: No edema, No calf tenderness / cord - Neuro Neuro: Alert and oriented X 3, Normal speech Results - Vitals Vitals: Vital Signs - 24 hr 10/24/20 10/24/20 10/24/20 17:23 19:33 21:00 Temperature 36.5 C Heart Rate 98 83 81 Respiratory 17 16 19 Rate Blood Pressure 112/74 122/75 121/74 O2 Saturation 99 96 97 10/24/20 22:17 Temperature 36.5 C Heart Rate 82 Respiratory 18 Rate Blood Pressure 118/74 O2 Saturation 97 Oxygen O2 Source Room air - Labs Labs: Laboratory Tests 10/24/20 10/24/20 10/24/20 19:21 19:21 19:21 WBC 10.6 RBC 3.87 L Hgb 11.7 L Hct 36.7 L MCV 94.8 MCH 30.2 MCHC 31.9 L RDW 13.9 Plt Count 141 MPV 10.4 Neut # (Auto) 9.1 H Lymph # (Auto) 0.7 L [place] # (Auto) 0.7 Eos # (Auto) 0.0 Baso # (Auto) 0.0 Absolute Nucleated RBC 0.00 Nucleated RBC % 0.0 PT 22.8 H INR 2.2 H Sodium 137 Potassium 3.7 Chloride 100 L Carbon Dioxide 26 Anion Gap 11.0 BUN 18 Creatinine 0.7 Estimated GFR (MDRD) 81 L Glucose 107 H Lactic Acid Calcium 9.2 Total Bilirubin 1.1 H AST 34 ALT 48 Alkaline Phosphatase 196 H Total Protein 6.7 Albumin 3.5 Globulin 3.2 Albumin/Globulin Ratio 1.1 Lipase 24 Nasal Adenovirus (PCR) Nasal B. parapertussis DNA (PCR) Nasal Coronavir 229E PCR Nasal Coronavir HKU1 PCR Nasal Coronavir NL63 PCR Nasal Coronavir OC43 PCR Nasal Enterovir/Rhinovir PCR Nasal Influenza B PCR Nasal Influenza A PCR Nasal Parainfluen 1 PCR Nasal Parainfluen 2 PCR Nasal Parainfluen 3 PCR Nasal Parainfluen 4 PCR Nasal RSV (PCR) Nasal B.pertussis DNA PCR Nasal C.pneumoniae (PCR) Andreas Human Metapneumo PCR Nasal M.pneumoniae (PCR) Nasal SARS-CoV-2 (PCR) 10/24/20 10/24/20 19:21 19:35 WBC RBC Hgb Hct MCV MCH MCHC RDW Plt Count MPV Neut # (Auto) Lymph # (Auto) [place] # (Auto) Eos # (Auto) Baso # (Auto) Absolute Nucleated RBC Nucleated RBC % PT INR Sodium Potassium Chloride Carbon Dioxide Anion Gap BUN Creatinine Estimated GFR (MDRD) Glucose Lactic Acid 0.9 Calcium Total Bilirubin AST ALT Alkaline Phosphatase Total Protein Albumin Globulin Albumin/Globulin Ratio Lipase Nasal Adenovirus (PCR) NOT DETECTED Nasal B. parapertussis DNA (PCR) NOT DETECTED Nasal Coronavir 229E PCR NOT DETECTED Nasal Coronavir HKU1 PCR NOT DETECTED Nasal Coronavir NL63 PCR NOT DETECTED Nasal Coronavir OC43 PCR NOT DETECTED Nasal Enterovir/Rhinovir PCR NOT DETECTED Nasal Influenza B PCR NOT DETECTED Nasal Influenza A PCR NOT DETECTED Nasal Parainfluen 1 PCR NOT DETECTED Nasal Parainfluen 2 PCR NOT DETECTED Nasal Parainfluen 3 PCR NOT DETECTED Nasal Parainfluen 4 PCR NOT DETECTED Nasal RSV (PCR) NOT DETECTED Nasal B.pertussis DNA PCR NOT DETECTED Nasal C.pneumoniae (PCR) NOT DETECTED Andreas Human Metapneumo PCR NOT DETECTED Nasal M.pneumoniae (PCR) NOT DETECTED Nasal SARS-CoV-2 (PCR) NOT DETECTED - Rads (name of study) CT A/P Radiology: EMP read contemporaneously Procedures - General procedure General procedure: Difficult for IV access, the nurses tried and failed. I personally placed a long 20-gauge IV in the right deep brachial vein after real-time ultrasound guidance and ChloraPrep. It flushed well. PD MEDICAL DECISION MAKING - ED course ED course: 75-year-old woman with history of vascular issues intra-abdominal he presents with lower abdominal pain with a sensation of cramping and needing to have a lenin wel movement despite minimal output. This is consistent with diverticulitis. Work-up was negative, she definitely has diverticula on the CT, I suspect it is probably a very mild case. She was pain-free after a dose of Dilaudid here. Departure - Departure Disposition: 01 Home, Self Care Clinical Impression: Diverticulitis of gastrointestinal tract Abdominal pain Qualifiers: Abdominal location: lower abdomen, unspecified Qualified Code(s): R10.30 - Lower abdominal pain, unspecified Condition: Good Record reviewed to determine appropriate education?: Yes Instructions: ED Abdominal Pain Unkn Cause Prescriptions: HYDROcod/ACETAM 5/325 [[place] 5/325] 1 - 2 tab PO Q6H PRN #15 tablet PRN Reason: Pain Comments: As discussed, CAT scan did not show any new vascular issues. You do have tiny gallstones, but you already knew about this and the pain today is not consistent with a gallbladder problem. Otherwise the radiologist did not feel there were any acute abnormalities, but your symptoms and initial examination were suggestive of may be a very mild case of diverticulitis that is not showing up on the CT. We discussed potentially antibiotics, but recent data and guidelines from the [place] [employer] suggest that it is reasonable to withhold antibiotics in cases of mild diverticulitis. For the next 36 hours or so, clear liquid diet, after that for the next couple of days a low residue diet with minimal fruits and vegetables and focusing more on foods that do not create a lot of stool such as plain white rice, boneless skinless chicken, I would avoid cheese. Return if worsening or if not better in the next 24 hours. Follow-up with your primary care physician, next available appointment. Discharge Date/Time: 10/24/20 22:18
[2020-10-24] MEDS ORDERED: IOVERSOL 320 100 ML VIAL IVP ONE ×2 (19:14→20:56)
[2020-10-24] MEDS ORDERED: HYDROmorphone 2 MG/ML VIAL IVP STA (19:22)
[2020-10-24 19:30] LABS: BASOPHILS % (AUTO) 0.2 %; EOSINOPHILS % (AUTO) 0.2 %; HGB - HEMOGLOBIN 11.7 g/dL (12.0-16.0); LYMPHOCYTES # (AUTO) 0.7 10^3/uL (1.5-3.5); LYMPHOCYTES % (AUTO) 6.4 %; MEAN CORPUSCULAR HEMOGLOBIN 30.2 pg (27.0-31.0); MEAN CORPUSCULAR HGB CONC 31.9 g/dL (32.0-36.0); MEAN CORPUSCULAR VOLUME 94.8 fL (81.0-99.0); MEAN PLATELET VOLUME 10.4 fL (7.9-10.8); MONOCYTES # (AUTO) 0.7 10^3/uL (0.0-1.0); NEUTROPHILS # (AUTO) 9.1 10^3/uL (1.5-6.6); NEUTROPHILS % (AUTO) 85.8 %; PLT - PLATELET COUNT 141 10^3/uL (130-450); RED BLOOD COUNT 3.87 10^6/uL (4.20-5.40); RED CELL DISTRIBUTION WIDTH 13.9 % (12.0-15.0); WHITE BLOOD COUNT 10.6 x10^3/uL (4.8-10.8)
[2020-10-24 19:34] LABS: INR 2.2 (0.8-1.2); PT - PROTHROMBIN TIME 22.8 secs (9.9-12.6)
[2020-10-24 19:42] LABS: ALBUMIN 3.5 g/dL (3.2-5.5); ALBUMIN/GLOBULIN RATIO 1.1 (1.0-2.2); BILIRUBIN,TOTAL 1.1 mg/dL (0.2-1.0); CALCIUM 9.2 mg/dL (8.5-10.3); CREATININE 0.7 mg/dL (0.4-1.0); TOTAL PROTEIN 6.7 g/dL (6.7-8.2)
[2020-10-24 20:49] LABS: C. PNEUMONIAE- RESP PCR PANEL NOT DETECTED
--- NOTE | 2020-10-24 21:13 | CT Report ---
PROCEDURE: Abdomen/Pelvis W INDICATIONS: IV only, low abd pain CONTRAST: IV CONTRAST: Optiray 320 ml: 100 PO CONTRAST: *NO PO CONTRAST TECHNIQUE: After the administration of intravenous contrast, 5 mm thick sections acquired from the diaphragms to the symphysis. 5 mm thick coronal and sagittal reformats were acquired. For radiation dose reducti on, the following was used: automated exposure control, adjustment of mA and/or kV according to delvis ent size. COMPARISON: None. FINDINGS: Image quality: Excellent. ABDOMEN: Lung bases: Lung bases are clear. Heart size is normal. Mechanical aortic valve prosthesis Solid organs: Liver and spleen are normal in size and enhancement. Gallbladder contains tiny stones . Mildly prominent gallbladder wall. Biliary system is non dilated. Pancreas enhances normally. No adrenal nodules. Kidneys demonstrate normal size and enhancement, without hydronephrosis. Peritoneum and bowel: Bowel loops demonstrate normal wall thickness and caliber. No free fluid or a ir. Nodes and vessels: No retroperitoneal or mesenteric adenopathy by size criteria. Aorta and inferior vena cava are normal in size. Extensive embolization coils present in the liver, presumed to represe nt hepatic artery coils, based on given history. Miscellaneous: No ventral hernias. PELVIS: Genitourinary: Bladder wall thickness is normal. Miscellaneous: No inguinal hernias or adenopathy. Bones: No suspicious bony lesions. No vertebral body compression fractures. IMPRESSION: 1. 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 2. Tiny gallstones, mildly prominent gallbladder wall. 3. Aortic valve prosthesis. 4. Otherwise unremarkable CT of the abdomen and pelvis. Reviewed by: Solomon Em MD on 10/24/2020 9:12 PM PST Approved by: Solomon Em MD on 10/24/2020 9:12 PM PST Station ID: [id number]
[2020-10-24] MEDS ORDERED: HYDROcod/ACET 5/325 Prepack 4 PO STA (21:29)
[2020-10-24] MEDS ORDERED: ONDANSETRON ODT 4 MG TABLET TL STA (21:51)
[2020-10-24 22:18] VITALS: BP 118/74
== END 2020-10-24 22:18 | disposition home or self-care (01) ==
LOC: ED 17:19
DX: K57.92 Diverticulitis of intestine, part unspecified, without perforation or abscess without bleeding (principal); K80.20 Calculus of gallbladder without cholecystitis without obstruction; Z98.890 Other specified postprocedural states; Z20.828 Contact with and (suspected) exposure to other viral communicable diseases
CPT/HCPCS: 74177; 80053; 83605; 83690; 85025; 85610; 87631; 96374; 99284; 99285; J1170; Q0162; Q9967; 0202U; 36415

== ENCOUNTER 2021-04-06 14:25 | Emergency (ER) | payer MEDICARE, BC ==
--- NOTE | 2021-04-06 15:23 | ED Physician Documentation ---
History of Present Illness - Stated complaint Stated Complaint: HEADACHE - Chief complaint Chief Complaint: Trauma Hd/Nk - History obtained from History obtained from: Patient - History of Present Illness Timing: How many days ago (4) Pain level max: 5 Pain level now: 2 - Additonal information Additional information: 75 year old female states she was gardening 4 days ago, stood up and hit her head on a branch. She states she has had continued headache since that time. Take Xarelto. She states that she did have vomiting 1 night. None now. No nausea. Worse with bending over, better with standing up. Also has mild neck pain. She states that is not unusual for her. No numbness or tingling. No focal neurological deficits. No loss of consciousness. No seizure activity. 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 : None HEENT: None Psych: Anxiety Musculoskeletal: Osteoarthritis Derm: None - Past Surgical History Past Surgical History: Yes General: Appendectomy Cardiovascular: Valve replacement, AAA - Present Medications Home Medications: Ambulatory Orders Medication Instructions Recorded Confirmed Aspirin EC [Ecotrin] 81 mg PO DAILY 04/06/21 04/06/21 Atorvastatin [Lipitor] 10 mg ORAL DAILY 04/06/21 04/06/21 Metoprolol Tartrate [Lopressor] 12.5 mg PO BID 04/06/21 04/06/21 Rivaroxaban [Xarelto] 10 mg PO DAILY 04/06/21 04/06/21 - Allergies Allergies/Adverse Reactions: Allergies Allergy/AdvReac Type Severity Reaction Status Date / Time melon Allergy Anaphylaxis Verified 04/06/21 14:34 amoxicillin AdvReac Itching Verified 04/06/21 14:34 - Social History Does the pt smoke?: No Smoking Status: Never smoker Does the pt drink ETOH?: Yes ETOH Use: Liquor Does the pt have substance abuse?: No - Immunizations Immunizations are current?: Yes - POLST Patient has POLST: No POLST Status: Full Code PD ED PE NORMAL - Vitals Vital signs reviewed: Yes - General General: Alert and oriented X 3, No acute distress, Well developed/nourished - HEENT HEENT: Atraumatic, PERRL, EOMI, Ears normal, Moist mucous membranes, Pharynx benign - Neck Neck: Supple, no meningeal sign, Other (mild upper C-spine TTP) - Cardiac Cardiac: RRR, Strong equal pulses - Respiratory Respiratory: No respiratory distress, Clear bilaterally - Abdomen Abdomen: Soft, Non tender, Non distended - Back Back: No spinal TTP - Derm Derm: Warm and dry - Extremities Extremities: Normal ROM s pain, No edema, No calf tenderness / cord - Neuro Neuro: Alert and oriented X 3, ski molder 2-12 intact, No motor deficit, No sensory deficit, Normal speech Eye Opening: Spontaneous Motor: Obeys Commands Verbal: Oriented GCS Score: 15 - Psych Psych: Normal mood, Normal affect Results - Vitals Vitals: Vital Signs - 24 hr 04/06/21 04/06/21 14:35 14:56 Temperature 37.1 C Heart Rate 82 70 Respiratory 16 16 Rate Blood Pressure 132/93 H 146/84 H O2 Saturation 98 99 Oxygen O2 Source Room air - Rads (name of study) head Ct Radiology: Prelim report reviewed, EMP read contemporaneously, See rad report c-spine CT Radiology: Prelim report reviewed, EMP read contemporaneously, See rad report PD MEDICAL DECISION MAKING - ED course Complexity details: reviewed results, re-evaluated patient, considered differential, d/w patient ED course: No acute findings on CT scan of the head and neck. No evidence of bleeding or fracture. Normal neurological exam here. We will continue supportive care. We will continue her blood thinners at home. Patient counseled regarding signs and symptoms for which I believe and urgent re-evaluation would be necessary. Patient with good understanding of and agreement to plan and is comfortable going home at this time This document was made in part using voice recognition software. While efforts are made to proofread this document, sound alike and grammatical errors may occur. Departure - Departure Disposition: 01 Home, Self Care Clinical Impression: Closed head injury Qualifiers: Encounter type: initial encounter Qualified Code(s): S09.90XA - Unspecified injury of head, initial encounter Condition: Good Instructions: ED Head Injury Closed Follow-Up: ARIES ZUÑIGA I [Primary Care Provider] - Within 1 week Comments: With your doctor for further care. Return if you worsen. Your CT scans did not show any acute abnormalities today.
--- NOTE | 2021-04-06 15:38 | CT Report ---
PROCEDURE: HEAD WO INDICATIONS: head vs branch, headache x 4 days TECHNIQUE: Noncontrast 4.5 mm thick angled axial sections acquired from the foramen magnum to the vertex. For r adiation dose reduction, the following was used: automated exposure control, adjustment of mA and/or kV according to patient size. COMPARISON: None. FINDINGS: Image quality: Excellent. CSF spaces: Basal cisterns are patent. No extra-axial fluid collections. Ventricles are normal in size and shape. Brain: No midline shift. No intracranial masses or hemorrhage. Black-white matter interface is norm al. Skull and face: Calvarium and visualized facial bones are intact, without suspicious lesions. Sinuses: Visualized sinuses and mastoids are clear. IMPRESSION: No trauma found, source of persistent headache over 4 days is not identified. No calvari al fracture is suspected. Reviewed by: Eduardo Mccoy MD on 04/06/2021 3:37 PM PDT Approved by: Eduardo Mccoy MD on 04/06/2021 3:37 PM PDT Station ID: [id number]
--- NOTE | 2021-04-06 15:42 | CT Report ---
PROCEDURE: CERVICAL SPINE WO INDICATIONS: head vs branch, neck pain x 4 days TECHNIQUE: Noncontrast 3 mm thick sections acquired from the skull base to the T4 level. Sagittal and coronal r eformats were then constructed. For radiation dose reduction, the following was used: automated exp osure control, adjustment of mA and/or kV according to patient size. COMPARISON: None. FINDINGS: Image quality: Excellent. Bones: No fractures or dislocations but there is moderate to moderately severe degenerative disc dis ease over the middle and lower thirds of the cervical spine. Visualized superior ribs are intact. Soft tissues: Prevertebral soft tissues are normal in thickness. No paravertebral hematomas. No ap ical pneumothoraces. IMPRESSION: No fracture or traumatic subluxation is found. Chronic moderate to moderately severe mid and lower ce rvical degenerative disc disease and facet osteoarthritis. By this examination ligamentous laxity is not suspected and trauma to the ligaments or osseous elements of the cervical spine is not found. Reviewed by: Eduardo Mccoy MD on 04/06/2021 3:41 PM PDT Approved by: Eduardo Mccoy MD on 04/06/2021 3:41 PM PDT Station ID: [id number]
[2021-04-06 16:06] VITALS: BP 125/78
== END 2021-04-06 16:07 | disposition home or self-care (01) ==
LOC: ED 14:25
DX: S09.90XA Unspecified injury of head, initial encounter (principal); W22.8XXA Striking against or struck by other objects, initial encounter; Y93.H2 Activity, gardening and landscaping; I48.91 Unspecified atrial fibrillation; Z79.01 Long term (current) use of anticoagulants
CPT/HCPCS: 99282; 99284

== ENCOUNTER 2021-07-29 06:04 | Outpatient (CLI) | payer MEDICARE, BC | END 2021-07-29 06:05 | disposition critical access hospital (66) | LOC: EMS 06:04 | DX: R11.0 Nausea (principal); H92.09 Otalgia, unspecified ear; H93.8X9 Other specified disorders of ear, unspecified ear | CPT/HCPCS: A0425; A0427 ==

== ENCOUNTER 2021-07-29 06:30 | Observation (INO) | payer MEDICARE, BC ==
[2021-07-29] MEDS ORDERED: SODIUM CHLORIDE 0.9% 1,000 ML IV STA (06:40)
[2021-07-29] MEDS ORDERED: MECLIZINE 12.5 MG TABLET PO STA ×2 (06:40→12:56)
--- NOTE | 2021-07-29 07:37 | ED Physician Documentation ---
History of Present Illness - Stated complaint Stated Complaint: NAUSEA/CRACKING SOUND R EAR - Chief complaint Chief Complaint: Heent - History obtained from History obtained from: Patient - History of Present Illness Timing: Today - Additonal information Additional information: 75-year-old female with history of multiple vascular aneurysms has awoken this morning with acute vertigo and this is more severe than she has ever had in her life. She sat up in bed had sudden onset of vertigo and was unable to stand or get to the bathroom. 911 was called the patient has received some Zofran in route for nausea and she arrives to the emergency department without a headache but with severe vertigo with any movement of her head. She seems quite uncomfortable with this. 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 The patient states that yesterday she was feeling well without symptoms of any kind. Review of Systems Constitutional: denies: Fever Eyes: denies: Decreased vision Ears: reports: Tinnitus/ringing Nose: denies: Rhinorrhea / runny nose, Congestion Throat: denies: Oral lesions / sores, Sore throat Cardiac: denies: Chest pain / pressure, Palpitations Respiratory: denies: Dyspnea, Cough GI: reports: Nausea, Vomiting. 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 : None HEENT: None Psych: Anxiety Musculoskeletal: Osteoarthritis Derm: None - Past Surgical History Past Surgical History: Yes General: Appendectomy Cardiovascular: Valve replacement, AAA - Present Medications Home Medications: Ambulatory Orders Medication Instructions Recorded Confirmed Aspirin EC [Ecotrin] 81 mg PO DAILY 04/06/21 07/29/21 Atorvastatin [Lipitor] 10 mg ORAL DAILY 04/06/21 07/29/21 Metoprolol Tartrate [Lopressor] 12.5 mg PO BID 04/06/21 07/29/21 C,E,Zinc,Copper 11/Krror5z/Lut 1 cap PO DAILY 07/29/21 07/29/21 [Ocuvite Adult 50 Plus Softgel] Rivaroxaban [Xarelto] 20 mg PO DAILY 07/29/21 07/29/21 - Allergies Allergies/Adverse Reactions: Allergies Allergy/AdvReac Type Severity Reaction Status Date / Time melon Allergy Anaphylaxis Verified 07/29/21 06:44 amoxicillin AdvReac Itching Verified 07/29/21 06:44 - Social History Does the pt smoke?: No Smoking Status: Never smoker Does the pt drink ETOH?: Yes Does the pt have substance abuse?: No - Immunizations Immunizations are current?: Yes - POLST Patient has POLST: No POLST Status: Full Code PD ED PE NORMAL - Vitals Vital signs reviewed: Yes (hypertensive) - General General: Alert and oriented X 3, Well developed/nourished - HEENT HEENT: Atraumatic, PERRL, EOMI, Ears normal - Neck Neck: Supple, no meningeal sign, No bony TTP, Other (A bruit is heard to the left carotid consistent with a transmitted sound.) - Cardiac Cardiac: RRR, Other (2 out of 6 holosystolic murmur at the sternal border) - Respiratory Respiratory: No respiratory distress, Clear bilaterally - Abdomen Abdomen: Normal bowel sounds, Soft, Non tender, Non distended, No organomegaly - Back Back: No CVA TTP, No spinal TTP - Derm Derm: Normal color, Warm and dry, No rash - Extremities Extremities: No deformity, No edema - Neuro Neuro: Alert and oriented X 3, bowling ball engraver 2-12 intact, No motor deficit, No sensory deficit, Normal speech Eye Opening: To Voice Motor: Obeys Commands Verbal: Oriented GCS Score: 14 - Psych Psych: Normal mood, Normal affect Results - Vitals Vitals: Vital Signs - 24 hr 07/29/21 07/29/21 07/29/21 06:30 08:00 09:00 Temperature 35.5 C L 36 C L Heart Rate 63 60 68 Respiratory 16 16 16 Rate Blood Pressure 136/94 H 146/78 H 122/69 O2 Saturation 99 96 98 07/29/21 07/29/21 07/29/21 10:00 11:00 12:00 Temperature Heart Rate 66 67 68 Respiratory 16 16 16 Rate Blood Pressure 134/75 H 120/81 H 112/70 O2 Saturation 96 94 95 Oxygen O2 Source Room air - Labs Labs: Laboratory Tests 07/29/21 07/29/21 07:35 07:35 WBC 8.4 RBC 3.98 L Hgb 12.9 Hct 38.5 MCV 96.7 MCH 32.4 H MCHC 33.5 RDW 12.1 Plt Count 134 MPV 10.7 Neut # (Auto) 6.3 Lymph # (Auto) 1.2 L [place] # (Auto) 0.8 Eos # (Auto) 0.1 Baso # (Auto) 0.0 Absolute Nucleated RBC 0.00 Nucleated RBC % 0.0 Sodium 142 Potassium 4.1 Chloride 106 Carbon Dioxide 25 Anion Gap 11.0 BUN 22 H Creatinine 0.7 Estimated GFR (MDRD) 81 L Glucose 119 H Calcium 9.3 Total Bilirubin 1.3 H AST 27 ALT 22 Alkaline Phosphatase 114 Total Protein 6.3 L Albumin 3.8 Globulin 2.5 Albumin/Globulin Ratio 1.5 Lipase 23 - Rads (name of study) CTA neck Radiology: Prelim report reviewed (Impression: There are no areas of a hemodynamic dynamically significant stenosis, vascular occlusion or aneurysmal dilation within the neck vasculature. Multifocal areas of low-attenuation within the thyroid, unchanged since 2019. Thyroid ultrasound may be obtained as clinically indicated for furt), EMP read indepedently, See rad report CTA head Radiology: Prelim report reviewed (Impression: 1. No acute intracranial process. Moderate atrophy and chronic microvascular ischemic changes. No areas of hemodynamically significant stenosis, vascular occlusion or aneurysmal dilation within the anterior circulation. Mild basilar ectasia.), EMP read indepedently, See rad report PD MEDICAL DECISION MAKING - ED course Complexity details: reviewed results, re-evaluated patient, considered differential, d/w patient ED course: 75-year-old female with a history of vascular problems has developed acute vertigo. She has had vertigo previously that has resolved with conservative treatment. Today this is much worse than she is ever had and she is unable to move her head without developing symptoms of nausea and dizziness. She is treated here in the emergency department with meclizine saline and dexamethasone and she has some improvement she is eventually given Inapsine and this seems to help as well but she continues to be symptomatic with any movement of her head. We did attempt to do Angel maneuver she was unable to complete the maneuver. We subsequently have administered more meclizine to the patient but she does not feel safe going home. I do not see that this patient would be able to safely get up to go to the bathroom. During our evaluation today I did CT angiogram of her head and neck which were unremarkable studies. The hospitalist (Prema) is consulted in the case and he recommends evaluation by physical therapy to perform the Angel maneuver and for diagnostic procedures. "Travis" the physical therapist did come to the emergency department and evaluated the patient. She appears to have some horizontal canal issue and she did get treatment here in the emergency department with some improvement. She still is quite dizzy and a risk to be at home. Departure - Departure Disposition: ED Place in Observation Clinical Impression: Labyrinthitis, acute Qualifiers: Laterality: unspecified laterality Qualified Code(s): H83.09 - Labyrinthitis, unspecified ear Condition: Serious
[2021-07-29 07:54] LABS: ALBUMIN 3.8 g/dL (3.2-5.5); ALBUMIN/GLOBULIN RATIO 1.5 (1.0-2.2); BILIRUBIN,TOTAL 1.3 mg/dL (0.2-1.0); CALCIUM 9.3 mg/dL (8.5-10.3); CREATININE 0.7 mg/dL (0.4-1.0); POTASSIUM 4.1 mmol/L (3.5-5.0); TOTAL PROTEIN 6.3 g/dL (6.7-8.2)
[2021-07-29] MEDS ORDERED: IOPAMIDOL-300 50 ML VIAL ONE (08:03)
[2021-07-29 08:07] LABS: BASOPHILS % (AUTO) 0.4 %; EOSINOPHILS # (AUTO) 0.1 10^3/uL (0.0-0.7); EOSINOPHILS % (AUTO) 0.6 %; HCT - HEMATOCRIT 38.5 % (37.0-47.0); HGB - HEMOGLOBIN 12.9 g/dL (12.0-16.0); LYMPHOCYTES # (AUTO) 1.2 10^3/uL (1.5-3.5); LYMPHOCYTES % (AUTO) 14.5 %; MEAN CORPUSCULAR HEMOGLOBIN 32.4 pg (27.0-31.0); MEAN CORPUSCULAR HGB CONC 33.5 g/dL (32.0-36.0); MEAN CORPUSCULAR VOLUME 96.7 fL (81.0-99.0); MEAN PLATELET VOLUME 10.7 fL (7.9-10.8); MONOCYTES # (AUTO) 0.8 10^3/uL (0.0-1.0); MONOCYTES % (AUTO) 9.2 %; NEUTROPHILS # (AUTO) 6.3 10^3/uL (1.5-6.6); NEUTROPHILS % (AUTO) 74.8 %; PLT - PLATELET COUNT 134 10^3/uL (130-450); RED BLOOD COUNT 3.98 10^6/uL (4.20-5.40); RED CELL DISTRIBUTION WIDTH 12.1 % (12.0-15.0); WHITE BLOOD COUNT 8.4 x10^3/uL (4.8-10.8)
[2021-07-29] MEDS ORDERED: IOPAMIDOL-300 50 ML VIAL IVP ONE (08:43)
--- NOTE | 2021-07-29 08:56 | CT Report ---
PROCEDURE: ANGIO HEAD W/WO INDICATIONS: acute vertigo/hearing loss R hx vasc CONTRAST: IV CONTRAST: Isovue 300 ml: 80 PO CONTRAST: *NO PO CONTRAST TECHNIQUE: Precontrast 4.5 mm thick angled axial sections acquired from the foramen magnum to the vertex. Afte r the administration of intravenous contrast, 1 mm thick sections acquired through the [place] of [place] is. Postcontrast 4.5 mm thick sections then re-acquired from the foramen magnum to the vertex. 3-di mensional vluomuf-eaamtuuxw-tvnvjzkius (MIP) and/or volume rendering reformats were acquired of the c entral intracranial vasculature. For radiation dose reduction, the following was used: automated ex posure control, adjustment of mA and/or kV according to patient size. COMPARISON: CT head 04/06/2021 CTA neck 07/29/2021 FINDINGS: Image quality: Excellent. Anterior circulation: Intracranial internal carotid arteries are normal in size and flow. The flow within the paired anterior cerebral arteries is normal and symmetric. The flow within the middle cer ebral arteries is normal and symmetric. The anterior communicating artery is seen. No aneurysms are seen. Posterior circulation: There is a vertebral artery dominance. Visualized portions of the vertebral a rteries demonstrate normal caliber, and join to form a the basilar artery. Basilar artery is mildly e ctatic. Flow within the posterior cerebral arteries is normal and symmetric. No aneurysms are seen. The ventricular system and cortical sulci demonstrate atrophy, consistent for patient's stated age. There are areas of hypodensity in the periventricular and subcortical white matter. There is no acut e intra or extra-axial fluid collection. No acute hemorrhage, mass lesion or midline shift. Brainst em is unremarkable. Globes are symmetrical. Sinuses are aerated. Osseous structures are intact. IMPRESSION: 1. No acute intracranial process. 2. Moderate atrophy and chronic microvascular ischemic changes. 3. No areas of hemodynamically significant stenosis, vascular occlusion or aneurysmal dilation within the anterior circulation. 4. Mild basilar ectasia. Reviewed by: Renee Snyder MD on 07/29/2021 8:55 AM PDT Approved by: Renee Snyder MD on 07/29/2021 8:55 AM PDT Station ID: [id number]
--- NOTE | 2021-07-29 09:02 | CT Report ---
PROCEDURE: ANGIO NECK W INDICATIONS: acute vertigo/hearing loss R hx vasc CONTRAST: IV CONTRAST: Isovue 300 ml: 80 PO CONTRAST: *NO PO CONTRAST TECHNIQUE: After the administration of intravenous contrast, 1.5 mm axial sections acquired from the aortic arch to the [place]. Coronal 3-D maximum intensity projection (MIP) and/or volume rendering ref ormats were then performed. For radiation dose reduction, the following was used: automated exposur e control, adjustment of mA and/or kV according to patient size. COMPARISON: CT head 04/06/2021 CTA head 07/28/2021 CTA chest 04/05/2020 FINDINGS: Image quality: Excellent. The origins of the left and right common, internal and external carotid arteries demonstrate no areas of hemodynamically significant stenosis, vascular occlusion or aneurysmal dilation. Origin of the le ft vertebral artery and right vertebral artery demonstrate no areas of hemodynamically significant st enosis, vascular occlusion or aneurysmal dilation. Aortic arch demonstrates conventional anatomy. [place] ited, visualized portions of the subclavian vasculature are unremarkable. Visualized basilar artery e ctasia is noted, as seen on CTA head report of 07/29/2021. Visualized neck soft tissues demonstrate no suspicious abnormalities. The thyroid demonstrates multi focal areas of low attenuation and calcification most prominently on the right measuring 1.3 cm. May appear similar compared to 2020. Bones: No suspicious bony lesions. Visualized cervical spine appears normally aligned. IMPRESSION: There are no areas of hemodynamically significant stenosis, vascular occlusion or aneurysmal dilation within the neck vasculature. Multifocal areas of low attenuation constipation within the thyroid, unchanged since 2020. Thyroid ul trasound may be obtained as clinically indicated for further evaluation. The estimate of stenosis included in the report of the imaging study was calculated using the NASCET method Reviewed by: Renee Snyder MD on 07/29/2021 9:01 AM PDT Approved by: Renee Snyder MD on 07/29/2021 9:01 AM PDT Station ID: [id number]
[2021-07-29] MEDS ORDERED: DEXAMETHASONE 10 MG/ML VIAL IVP STA (09:10)
[2021-07-29] MEDS ORDERED: DROPERIDOL 5 MG/2 ML VIAL IVP STA (11:06)
[2021-07-29] MEDS ORDERED: ONDANSETRON 4 MG/2 ML VIAL IVP PRN (16:03)
[2021-07-29] MEDS ORDERED: ONDANSETRON ODT 4 MG TABLET TL PRN (16:03)
[2021-07-29] MEDS ORDERED: ACETAMINOPHEN 325 MG TABLET PO PRN (16:03)
[2021-07-29] MEDS ORDERED: SODIUM CHLORIDE FLUSH 0.9% 10 ML SYRINGE IVP PRN (16:03)
[2021-07-29] MEDS ORDERED: MECLIZINE 12.5 MG TABLET PO PRN (16:05)
--- NOTE | 2021-07-29 16:07 | HISTORY & PHYSICAL EXAMINATION ---
Chief Complaint - Chief Complaint Chief Complaint: Vertigo History of Present Illness - Admitted From Admitted From:: Home - History Obtained From Records Reviewed: Yes History obtained from: Patient, ER Physician, EMR - History of Present Illness HPI Comment/Other: This is a 75-year-old female with a history of paroxysmal atrial fibrillation, history of valve replacement and thoracic aortic aneurysm repair who presents today complaining of vertigo-like symptoms. She states that she woke up this morning and felt like the whole room is spinning around her and she felt quite nauseous. She states she has had similar symptoms in the past but they would be very brief episodes and would resolve on their own. She felt fine last night when she went to bed and her symptoms only began when she woke up this morning. She associated nausea but no vomiting. She reports hearing loss in her right ear but feels like this has improved through the day although she still cannot hear very well in her right ear. She reported a mild headache this morning which has since resolved. She reports mild tinnitus at baseline which is intermittent but feels that it is a little more prominent today. No recent illnesses or cold-like symptoms. She denies any ear pain. She reports no chest pain, dyspnea, abdominal pain, dysuria, urgency, frequency. No focal deficits. Given her history of aneurysms, she underwent a CTA of the head and neck in the emergency department which showed no acute stenosis or evidence of aneurysm. She is given multiple doses of meclizine, Decadron, and antiemetics with some improvement in her symptoms. She was then evaluated by physical therapy who performed multiple maneuvers with some benefit. Unfortunately, the patient still reports significant symptoms is unable to ambulate or even stand up out of bed without feeling nauseous and dizzy. Given this, medicine was consulted for admission. I did discuss goals of care the patient and she would like to be a full code. History - Past Medical History Cardiovascular: reports: Deep vein thrombosis, Atrial fibrillation, Valve disorder Respiratory: reports: None Neuro: reports: Peripheral neuropathy, Other (Vertigo) Endocrine/Autoimmune: reports: None GI: reports: GERD NETWORK SPECIALIST: reports: None : reports: None HEENT: reports: None Psych: reports: Anxiety Musculoskeletal: reports: Osteoarthritis Derm: reports: None MRSA Hx?: No - Past Surgical History General: reports: Appendectomy Cardiovascular: reports: Valve replacement, Vascular surgery (Hepatic artery aeu rysm repair), AAA - Family & Social History Family History: Father: CAD (CABG) Family History Comment/Other: Her father history of coronary artery disease and CABG. He lived until 102. Her mother had a history of CHF and breast cancer. She has one brother with a history of esophageal cancer another brother with a history of atrial fibrillation. Living arrangement: At home Living Situation: With spouse/s.o. Social History Notes: She lives at home with her . She denies smoking and reports occasional alcohol use. - POLST Patient has POLST: No POLST Status: Full Code Meds/Allgy - Home Medications Home Medications: Ambulatory Orders Medication Instructions Recorded Confirmed Aspirin EC [Ecotrin] 81 mg PO DAILY 04/06/21 07/29/21 Atorvastatin [Lipitor] 10 mg ORAL DAILY 04/06/21 07/29/21 Metoprolol Tartrate [Lopressor] 12.5 mg PO BID 04/06/21 07/29/21 C,E,Zinc,Copper 11/Usipz8x/Lut 1 cap PO DAILY 07/29/21 07/29/21 [Ocuvite Adult 50 Plus Softgel] Rivaroxaban [Xarelto] 20 mg PO DAILY 07/29/21 07/29/21 - Allergies Allergies/Adverse Reactions: Allergies Allergy/AdvReac Type Severity Reaction Status Date / Time melon Allergy Anaphylaxis Verified 07/29/21 06:44 amoxicillin AdvReac Itching Verified 07/29/21 06:44 Review of Systems - Constitutional Constitutional: denies: Fatigue, Fever, Chills - Eyes Eyes: reports: Other (Photophobia). denies: Blurred vision, Vision loss - Ears, Nose & Throat Ears, Nose & Throat: reports: Hearing loss, Tinnitus, Vertigo. denies: Ear pain, Nasal discharge, Nasal congestion - Cardiovascular Cariovascular: reports: Lightheadedness. denies: Chest pain, Syncope, Exertional dyspnea, Decr. exercise tolerance - Respiratory Respiratory: denies: Cough, SOB at rest, SOB with exertion - Gastrointestinal Gastrointestinal: reports: Nausea. denies: Abdominal pain, Diarrhea, Vomiting - Genitourinary Genitourinary: denies: Dysuria, Frequency, Urgency - Musculoskeletal Musculoskeletal: denies: Limited range of motion, Muscle weakness - Neurological Neurological: reports: Dizziness. denies: General weakness, Focal weakness, Headache - All Other Systems All Other Systems: reports: Reviewed and negative Prior Level of Functionality: She is independent with her ADLs. Exam - Vital Signs Reviewed Vital Signs: Yes Vital Signs: Vital Signs x48h Temp Pulse Resp BP Pulse Ox 07/29/21 13:00 68 16 130/79 07/29/21 12:00 68 16 112/70 95 07/29/21 11:00 67 16 120/81 H 94 07/29/21 10:00 66 16 134/75 H 96 07/29/21 09:00 36 C L 68 16 122/69 98 - Physical Exam General Appearance: positive: Alert, Mild distress Eyes Bilateral: positive: PERRL, EOMI, Conjunctivae nml, Other (2 beats of horizontal nystagmus in the left eye noted.) ENT: positive: ENT inspection nml Neck: positive: Nml inspection Respiratory: positive: No respiratory distress. negative: Wheezes, Rales Cardiovascular: positive: Regular rate & rhythm, Systolic murmur. negative: Tachycardia, Bradycardia Abdomen: positive: No distention. negative: Non-tender, Tenderness Skin: positive: Warm, Dry Extremities: positive: No pedal edema Neurologic/Psychiatric: positive: Motor nml. negative: Disoriented to person, Disoriented to place, Slurred/abnml speech Conclusion/Plan - Problem List (1) Vertigo Conclusion/Plan: Differential includes Mnire's, BPPV, labyrinthitis. Although she has improvement in her symptoms, she is still quite symptomatic as not safe discharge home. CT of the head and neck were unremarkable. Physical therapy did evaluate her in the emergency department and perform maneuvers with some improvement. We will place her in observation and hydrated with IV fluids and continue meclizine as needed. We will have physical therapy evaluate her again. I am hopeful she can be discharged tomorrow and follow-up with physical therapy on outpatient basis for vestibular rehab. (2) History of thoracic aortic aneurysm repair Conclusion/Plan: This was done in November 2019 at [facility] in [place]. (3) History of DVT (deep vein thrombosis) Conclusion/Plan: Continue xarelto. (4) Paroxysmal atrial fibrillation Conclusion/Plan: Stable. She is rate controlled and in sinus rhythm. Continue metoprolol and Xarelto. (5) H/O aortic valve replacement Conclusion/Plan: Stable. This was done in April 2020 at [facility]. She will continue outpatient follow-up once discharged. - Lab Results Lab results reviewed: Yes Fish Bones: 07/29/21 07:35 07/29/21 07:35 - Diagnostic Imaging Results Diagnostic Imaging Results: positive: Final report reviewed Core Measures - Anticipated LOS I expect patient to be DC'd or transferred within 96 hours.: Yes - Issues Hospital Issues and Management Plan: 75-year-old female presents with vertigo-like symptoms. Work-up has been unremarkable but she is still symptomatic despite therapy in the emergency department and so we will place her in observation for further management and evaluation. - DVT/VTE - Prophylaxis VTE/DVT Device ordered at admit?: No VTE/DVT Prophylaxis med ordered at admit?: Yes
--- NOTE | 2021-07-29 16:33 | PHARMACY PROGRESS NOTE ---
- Best Possible Medication History Admit Date and Time: 07/29/21 1601 Processed by: Nursing Medication History completed: Yes Patient Interview: Completed (MED REC COMPLETED BY NURSING) As the person ultimately responsible for medication therapy, providers are able to order a medication from an existing home medication list in [facility] via the "Reconcile Routine" prior to Confirmation of that medication by operator command support systems. Such practice is discouraged except when the physician, in their clinical judgment, deems that a medical need exists for a medication without regard to previous use.
[2021-07-29] MEDS ORDERED: LACTATED RINGERS 1,000 ML IV SCH (17:00)
[2021-07-29] MEDS ORDERED: RIVAROXABAN 10 MG TABLET PO SCH (17:00)
[2021-07-29] MEDS ORDERED: PROCHLORPERAZINE 10 MG/2 ML VIAL IVP PRN (17:14)
[2021-07-29 17:46] LABS: B. PARAPERTUSSIS- RESP PCR PAN NOT DETECTED; B. PERTUSSIS- RESP PCR PANEL NOT DETECTED; C. PNEUMONIAE- RESP PCR PANEL NOT DETECTED; CORONAVIRUS 229E-RESP PCR NOT DETECTED; CORONAVIRUS HKU1-RESP PCR NOT DETECTED; CORONAVIRUS NL63-RESP PCR NOT DETECTED; CORONAVIRUS OC43-RESP PCR NOT DETECTED; HUMAN METAPNEUMOVIRUS NOT DETECTED; INFLUENZA A- RESP PCR PANEL NOT DETECTED; INFLUENZA B - RESP PCR PANEL NOT DETECTED; M. PNEUMONIAE- RESP PCR PANEL NOT DETECTED; PARAINFLUENZA VIRUS 1 NOT DETECTED; PARAINFLUENZA VIRUS 2 NOT DETECTED; PARAINFLUENZA VIRUS 3 NOT DETECTED; PARAINFLUENZA VIRUS 4 NOT DETECTED; RHINOVIRUS/ENTEROVIRUS NOT DETECTED; RSV- RESP PCR PANEL NOT DETECTED; SARS-CoV-2 -RESP PCR PANEL NOT DETECTED
[2021-07-29] MEDS: SODIUM CHLORIDE FLUSH 0.9% 10 ML SYRINGE IVP SCH (18:27)
[2021-07-29] MEDS ORDERED: ATORVASTATIN 10 MG TABLET PO SCH (21:00)
[2021-07-29] MEDS: METOPROLOL TARTRATE 25 MG TABLET PO SCH (21:21)
[2021-07-30] MEDS: SODIUM CHLORIDE FLUSH 0.9% 10 ML SYRINGE IVP SCH ×2 (01:44→08:14)
[2021-07-30 06:09] LABS: BASOPHILS % (AUTO) 0.1 %; HGB - HEMOGLOBIN 12.1 g/dL (12.0-16.0); LYMPHOCYTES # (AUTO) 0.7 10^3/uL (1.5-3.5); LYMPHOCYTES % (AUTO) 7.8 %; MEAN CORPUSCULAR HEMOGLOBIN 31.7 pg (27.0-31.0); MEAN CORPUSCULAR HGB CONC 32.7 g/dL (32.0-36.0); MEAN CORPUSCULAR VOLUME 96.9 fL (81.0-99.0); MEAN PLATELET VOLUME 10.5 fL (7.9-10.8); MONOCYTES # (AUTO) 0.7 10^3/uL (0.0-1.0); MONOCYTES % (AUTO) 8.5 %; NEUTROPHILS % (AUTO) 83.2 %; PLT - PLATELET COUNT 141 10^3/uL (130-450); RED BLOOD COUNT 3.82 10^6/uL (4.20-5.40); WHITE BLOOD COUNT 8.4 x10^3/uL (4.8-10.8)
[2021-07-30 06:16] LABS: CALCIUM 9.1 mg/dL (8.5-10.3); CREATININE 0.6 mg/dL (0.4-1.0); POTASSIUM 3.9 mmol/L (3.5-5.0)
[2021-07-30] MEDS: METOPROLOL TARTRATE 25 MG TABLET PO SCH (08:14)
[2021-07-30] MEDS ORDERED: [UNRECOGNIZED DRUG - MIXTURE] PO SCH (09:00)
[2021-07-30] MEDS ORDERED: ASPIRIN EC 81 MG TABLET PO SCH (09:00)
--- NOTE | 2021-07-30 11:41 | Discharge Plan ---
Discharge Plan Problem Reviewed?: Yes Disposition: Home, Self Care Condition: Stable Prescriptions: Meclizine [Antivert] 25 mg PO Q6HR PRN #30 tablet PRN Reason: Dizziness Diet: Regular Activity Restrictions: Activity as Tolerated Assistance Devices: Walker Instruction Topics: Dizziness Vertigo Inner Ear, Dizziness Vertigo Balance Safety Health Concerns: You were admitted to the hospital because of vertigo. CT scan of the head did not reveal any acute abnormalities. We treated you with IV fluids and meclizine with improvement in her symptoms. You are also seen by physical therapy and they attempted some vestibular movements with improvement in your symptoms. It is recommended that you follow-up with physical therapy on an outpatient basis. Please see your primary care physician next week. Plan of Treatment: You may take meclizine as needed and a prescription was sent to your pharmacy. You should use a walker for the time being given you still have symptoms. Please follow-up with your primary care physician next week. If you still have hearing loss in the right ear then you should see an ears, nose, throat doctor. Care Goals: The goal is to treat your underlying vertigo and prevent recurrence in the future. Assessment: The patient expressed understanding of the treatment plan. Additional Instructions or Follow Up instructions: Please follow-up with your primary care physician in 1 week. Please follow-up w ith physical therapy for vestibular rehab. Follow-Up Care: Outpatient Rehab - PT, Outpatient Rehab - OT No Smoking: If you smoke, Please STOP! Call for help. Follow-up with: ARIES ZUÑIGA I [Primary Care Provider] -
--- NOTE | 2021-07-30 11:45 | DISCHARGE SUMMARY ---
"Discharge Summary Admit Date: 07/29/21 Discharge Date: 07/30/21 Discharging Provider: Zechariah Lloyd Primary Care Provider: Glenis Grijalva Code Status: Attempt Resuscitation Condition at Discharge: Stable Discharge Disposition: 01 Home, Self Care - DIAGNOSES Admission Diagnoses: Vertigo History of thoracic aortic aneurysm repair History of DVT Paroxysmal atrial fibrillation History of aortic valve replacement Discharge Diagnoses with Status of Each Condition: Vertigo - improved. History of thoracic aortic aneurysm repair - stable. History of DVT - stable. Paroxysmal atrial fibrillation - stable. History of aortic valve replacement - stable. - HPI History of Present Illness: This is a 75-year-old female with a history of paroxysmal atrial fibrillation, history of valve replacement and thoracic aortic aneurysm repair who presents today complaining of vertigo-like symptoms. She states that she woke up this morning and felt like the whole room is spinning around her and she felt quite nauseous. She states she has had similar symptoms in the past but they would be very brief episodes and would resolve on their own. She felt fine last night when she went to bed and her symptoms only began when she woke up this morning. She associated nausea but no vomiting. She reports hearing loss in her right ear but feels like this has improved through the day although she still cannot hear very well in her right ear. She reported a mild headache this morning which has since resolved. She reports mild tinnitus at baseline which is intermittent but feels that it is a little more prominent today. No recent illnesses or cold-like symptoms. She denies any ear pain. She reports no chest pain, dyspnea, abdominal pain, dysuria, urgency, frequency. No focal deficits. Given her history of aneurysms, she underwent a CTA of the head and neck in the emergency department which showed no acute stenosis or evidence of aneurysm. She is given multiple doses of meclizine, Decadron, and antiemetics with some improvement in her symptoms. She was then evaluated by physical therapy who performed multiple maneuvers with some benefit. Unfortunately, the patient still reports significant symptoms is unable to ambulate or even stand up out of bed without feeling nauseous and dizzy. Given this, medicine was consulted for admission. I did discuss goals of care the patient and she would like to be a full code. - CONSULTS | PROCEDURES Consultations: PT - HOSPITAL COURSE Hospital Course: She was placed in observation for her vertigo. CTA of the head and neck in the emergency department revealed no acute abnormalities. She was hydrated overnight and was continued on meclizine as needed. The following morning she still had symptoms but felt much improved. She was able to sit up in bed and even ambulate with a walker. She still felt symptomatic at times but much improved. She was seen by physical therapy again and they recommended outpatient follow-up for vestibular rehab. She was discharged home in a stable condition with a walker to use as needed. I provided her with a prescription f or meclizine and she was asked to follow-up with physical therapy for vestibular rehab. - ALLERGIES Allergies/Adverse Reactions: Allergies Allergy/AdvReac Type Severity Reaction Status Date / Time melon Allergy Anaphylaxis Verified 07/29/21 06:44 amoxicillin AdvReac Itching Verified 07/29/21 06:44 - MEDICATIONS Home Medications: Ambulatory Orders Medication Instructions Recorded Confirmed Aspirin EC [Ecotrin] 81 mg PO DAILY 04/06/21 07/29/21 Atorvastatin [Lipitor] 10 mg ORAL DAILY 04/06/21 07/29/21 Metoprolol Tartrate [Lopressor] 12.5 mg PO BID 04/06/21 07/29/21 C,E,Zinc,Copper 11/Oupbs0s/Lut 1 cap PO DAILY 07/29/21 07/29/21 [Ocuvite Adult 50 Plus Softgel] Rivaroxaban [Xarelto] 20 mg PO DAILY 07/29/21 07/29/21 Meclizine [Antivert] 25 mg PO Q6HR PRN #30 tablet 07/30/21 - PHYSICAL EXAM AT DISCHARGE General Appearance: positive: No acute distress, Alert Eyes Bilateral: positive: Normal inspection, PERRL, EOMI, Conjunctivae nml, Other (1 beat of horizontal nystagmus noted when looking right) ENT: positive: ENT inspection nml, Other (Tympanic membrane without erythema or effusion bilaterally.) Neck: positive: Nml inspection Respiratory: positive: No respiratory distress. negative: Wheezes, Rales Cardiovascular: positive: Regular rate & rhythm, Systolic murmur. negative: Tachycardia, Bradycardia Abdomen: positive: Non-tender, No distention. negative: Tenderness Skin: positive: Warm, Dry Extremities: positive: No pedal edema Neurologic/Psychiatric: positive: Motor nml. negative: Disoriented to person, Disoriented to place, Disoriented to time Physical Exam Other/Comments: Vital Signs - 24 hr 07/29/21 07/30/21 07/30/21 20:28 00:00 05:34 Temperature 36.6 C 36.5 C 36.4 C L Heart Rate [ 70 62 Brachial] Heart Rate [ 78 Radial] Respiratory 20 16 18 Rate Blood Pressure Blood Pressure 104/64 [Left Brachial artery] Blood Pressure 127/63 122/65 [Right Brachial artery] O2 Saturation 96 92 98 07/30/21 07/30/21 07/30/21 08:09 08:14 13:13 Temperature 36.6 C 36.3 C L Heart Rate [ 78 64 Brachial] Heart Rate [ Radial] Respiratory 16 16 Rate Blood Pressure 119/69 Blood Pressure [Left Brachial artery] Blood Pressure 119/69 117/62 [Right Brachial artery] O2 Saturation 96 100 Oxygen O2 Source Room air - LABS Result Diagrams: 07/30/21 05:24 07/30/21 05:24 - DIAGNOSTIC IMAGING Diagnostic Imaging Results: Final report reviewed Diagnostic Imaging Results Comments: CTA of the head showed no acute intracranial process. Moderate atrophy and chronic microvascular ischemic changes. No areas of hemodynamically significant stenosis, vascular occlusion oraneurysmal dilation within the anterior circulation. TA of the neck showed no areas of hemodynamically significant stenosis, vascular occlusion or aneurysmal dilation within the neck vasculature. Multifocal areas of low-attenuation within in the thyroid, unchanged since 2019. Thyroid ultrasound may be obtained as clinically indicated for further evaluation. - FOLLOW UP Follow Up: She was asked to follow-up with her primary care physician in 1 week and with physical therapy for vestibular rehab next week. - TIME SPENT Time Spent in Discharge (Minutes): 32"
[2021-07-30 13:14] VITALS: BP 117/62
== END 2021-07-30 13:25 | disposition home or self-care (01) ==
LOC: EDUNIT# → EDBD → ED 06:30 → MS2 16:03
PROVIDERS: ADMIT Internal Medicine; ATTEND Internal Medicine
DX: R42 Dizziness and giddiness (principal); I48.0 Paroxysmal atrial fibrillation; Z79.01 Long term (current) use of anticoagulants; Z95.2 Presence of prosthetic heart valve; Z98.890 Other specified postprocedural states; H93.19 Tinnitus, unspecified ear; Z86.718 Personal history of other venous thrombosis and embolism; G62.9 Polyneuropathy, unspecified; Z20.822 Contact with and (suspected) exposure to COVID-19
CPT/HCPCS: 36415; 70496; 70498; 80048; 80053; 83690; 85025; 87631; 96374; 96375; 97112; 97162; 97530; 99284; 99285; A9270; G0378; J7120; Q9967; 0202U

== ENCOUNTER 2021-10-08 10:18 | Outpatient (CLI) | payer MEDICARE, BC | END 2021-10-08 10:19 | disposition EMS.NT | LOC: EMS 10:18 | DX: S61.412A Laceration without foreign body of left hand, initial encounter (principal); W25.XXXA Contact with sharp glass, initial encounter; Y93.89 Activity, other specified; Y92.009 Unspecified place in unspecified non-institutional (private) residence as the place of occurrence of the external cause ==

== ENCOUNTER 2022-05-07 08:00 | Outpatient (CLI) | payer MEDICARE, BC ==
--- NOTE | 2022-05-07 16:16 | XRAY Report ---
PROCEDURE: Elbow 3 View LT INDICATIONS: LEFT ELBOW PAIN TECHNIQUE: 3 views of the elbow were acquired. COMPARISON: None. FINDINGS: Bones: No acute fractures or dislocations. No suspicious bony lesions. Soft tissues: No elbow joint effusion. No suspicious soft tissue calcifications. IMPRESSION: No acute osseous abnormality. If there is clinical concern or persistent symptoms, additional imaging such as repeat radiographs or advanced imaging (e.g. CT, MRI) may be helpful for further evaluation. Reviewed by: Jorge Reaves MD on 05/07/2022 4:15 PM PDT Approved by: Jorge Reaves MD on 05/07/2022 4:15 PM PDT Station ID: [id number]
== END 2022-05-07 23:59 | disposition home or self-care (01) ==
LOC: DI.S 08:00
PROVIDERS: ATTEND Physician Assistant Medical
DX: S50.02XA Contusion of left elbow, initial encounter (principal)

== ENCOUNTER 2024-04-03 17:59 | Emergency (ER) | payer MEDICARE, BC ==
--- NOTE | 2024-04-03 19:43 | XRAY Report ---
PROCEDURE: Foot 3+V LT INDICATIONS: Trauma TECHNIQUE: 3 views of the foot were acquired. COMPARISON: None. FINDINGS: Bones: No fractures or dislocations. No suspicious bony lesions. Soft tissues: No tibiotalar joint effusion. Achilles tendon appears normal. IMPRESSION: No acute bony abnormality. If there is persistent clinical concern for a radiographically occult frac ture, recommend immobilization and repeat imaging in 10 to 14 days. Reviewed by: Erik Cortez MD on 04/03/2024 7:42 PM PDT Approved by: Erik Cortez MD on 04/03/2024 7:42 PM PDT Station ID: [id number]
--- NOTE | 2024-04-03 19:49 | ED Physician Documentation ---
PD HPI LOWER EXT INJURY - Stated complaint Stated Complaint: LT FOOT INJ - Chief complaint Chief Complaint: Ext Problem - History obtained from History obtained from: Patient, Family - History of Present Illness PD HPI LOW EXT INJURY LOCATION: Left, Foot Timing - duration: Hours (2) Timing - details: Abrupt onset Pain level max: 5 Pain level now: 3 Improved by: Rest, Immobilization Worsened by: Moving, Palpating Associated symptoms: No: Weakness, Swelling, Discolored Contributing factors: No: Anticoagulated - Additional information Additional information: 78-year-old female was at a restaurant today when she tripped and injured her left foot. Worse with moving, better with rest. No swelling or discoloration. Not anticoagulated. Occurred about 2 hours prior to arrival. No other injuries. No head, neck, back pain. PD PAST MEDICAL HISTORY - Past Medical History Past Medical History: Yes Cardiovascular: Deep vein thrombosis, Atrial fibrillation, Valve disorder Respiratory: None Neuro: Peripheral neuropathy, Other Endocrine/Autoimmune: None GI: GERD [employer] SPECIALIST: None : None HEENT: None Psych: Anxiety Musculoskeletal: Osteoarthritis Derm: None - Past Surgical History Past Surgical History: Yes General: Appendectomy Cardiovascular: Valve replacement, Vascular surgery, AAA - Present Medications Home Medications: Ambulatory Orders Medication Instructions Recorded Confirmed Aspirin EC [Ecotrin] 81 mg PO DAILY 04/06/21 04/03/24 Atorvastatin [Lipitor] 10 mg ORAL DAILY 04/06/21 04/03/24 Metoprolol Tartrate [Lopressor] 1 tab PO BID 04/06/21 04/03/24 C,E,Zinc,Copper 11/Xoaym6j/Lut 1 cap PO DAILY 07/29/21 04/03/24 [Ocuvite Adult 50 Plus Softgel] Rivaroxaban [Xarelto] 20 mg PO DAILY 07/29/21 04/03/24 Meclizine [Antivert] 25 mg PO Q6HR PRN #30 tablet 07/30/21 04/03/24 - Allergies Allergies/Adverse Reactions: Allergies Allergy/AdvReac Type Severity Reaction Status Date / Time melon Allergy Anaphylaxis Verified 04/03/24 18:07 amoxicillin AdvReac Itching Verified 04/03/24 18:07 - Social History Does the pt smoke?: No Smoking Status: Never smoker Does the pt drink ETOH?: Yes Does the pt have substance abuse?: No - Immunizations Immunizations are current?: Yes - POLST Patient has POLST: No POLST Status: Full Code PD ED PE NORMAL - Vitals Vital signs reviewed: Yes - General General: Alert and oriented X 3, No acute distress - HEENT HEENT: Moist mucous membranes - Derm Derm: Warm and dry - Extremities Extremities: Other (Left foot has mild diffuse tenderness especially over the dorsum of the foot. No specific point tenderness. Most of the pain is with movement of her toes. She has no tenderness over the ankle or ankle joint. No calcaneus tenderness. No plantar tenderness. Neurovascular intact.) - Neuro Neuro: Alert and oriented X 3 - Psych Psych: Normal mood, Normal affect Results - Vitals Vitals: Vital Signs - 24 hr 04/03/24 04/03/24 18:04 20:18 Temperature 36.4 C L Heart Rate 76 72 Respiratory 16 16 Rate Blood Pressure 154/93 H 154/85 H O2 Saturation 99 100 Oxygen O2 Source Room air - Rads (name of study) Left foot x-ray Relevant Findings:: Final report received, See rad report PD Medical Decision Making - ED course Complexity details: reviewed results, re-evaluated patient, considered differential, d/w patient ED course: No acute findings on x-ray. No evidence of fracture. Likely sprain. Exam is consistent with a sprain as well. Placed in a postoperative shoe. Declines any pain medication here for home. Neurovascular intact. Patient counseled regarding signs and symptoms for which I believe and urgent re-evaluation would be necessary. Patient with good understanding of and agreement to plan and is comfortable going home at this time This document was made in part using voice recognition software. While efforts are made to proofread this document, sound alike and grammatical errors may occur. Departure - Departure Disposition: Home, Self Care Clinical Impression: Sprain of foot, left Qualifiers: Encounter type: initial encounter Qualified Code(s): S93.602A - Unspecified sprain of left foot, initial encounter Condition: Good Instructions: ED Sprain Foot Follow-Up: ARIES ZUÑIGA I [Primary Care Provider] - Comments: Your x-ray does not show any acute abnormalities today. As we discussed this is likely a sprain of your foot, and this can take several weeks to heal. You can use Tylenol as needed for pain at home. I would recommend staying in a hard soled shoe such as the postoperative shoe that we have given you today. Please return if you worsen. Forms: PCP List Discharge Date/Time: 04/03/24 20:18
[2024-04-03 20:27] VITALS: BP 154/85; O2SAT 100
== END 2024-04-03 20:18 | disposition home or self-care (01) ==
LOC: ED 17:59
DX: S93.602A Unspecified sprain of left foot, initial encounter (principal); W01.0XXA Fall on same level from slipping, tripping and stumbling without subsequent striking against object, initial encounter; Y92.511 Restaurant or cafe as the place of occurrence of the external cause
CPT/HCPCS: 99283

== ENCOUNTER 2024-04-30 13:40 | Outpatient (CLI) | payer MEDICARE, BC ==
--- NOTE | 2024-04-30 21:31 | MRI Report ---
PROCEDURE: Foot LT WO INDICATIONS: SPRAIN OF L FOOT TECHNIQUE: Noncontrast sagittal T1 spin echo and T2 fast spin echo with fat saturation, long-axis T1 spin echo a nd T2 fast spin echo with fat saturation, short-axis proton density fast spin echo and T2 fast spin e cho with fat saturation through the forefoot. COMPARISON: Left foot radiograph dated 04/18/2024 and 04/03/2024. FINDINGS: Image quality: Excellent. Bones and joints: There is marrow edema involving first and second metatarsal bases with subtle inter nal linear hypointense signal extending to first and second MTP joint space consistent with nondispla ayaan intra-articular fractures in these areas. No other fracture or dislocation. Osteoarthritic change s are noted in midfoot and forefoot most notably involving first TMT joint and first MTP joint. Soft tissues: There is edema involving plantar foot muscles adjacent to first and second metatarsal b ases suggestive of low-grade muscle strain. Extensor and flexor tendons are grossly intact. Thickened Lisfranc ligament suggestive of ligament sprain. No ligament rupture. Thickened distal peroneus long us tendon extending to its distal insertion is noted. No gross plantar plate tear is seen on the sagi ttal images. IMPRESSION: 1. Nondisplaced intra-articular fractures involving first and second metatarsal bases. No other fract ure or dislocation. Midfoot and forefoot joint osteoarthritis as above. 2. Sprain of principal Lisfranc ligament. No full-thickness ligament rupture. 3. Mild myositis involving plantar foot muscles adjacent to first and second metatarsal bones. 4. Extensor and flexor tendons are intact. Tendinosis involving distal insertion of peroneus longus t endon. Reviewed by: Malik Hernandez MD on 04/30/2024 9:29 PM PDT Approved by: Malik Hernandez MD on 04/30/2024 9:29 PM PDT Station ID: [id number]
== END 2024-04-30 13:41 | disposition home or self-care (01) ==
LOC: DI 13:40
PROVIDERS: ATTEND Registered Nurse
DX: S92.315A Nondisplaced fracture of first metatarsal bone, left foot, initial encounter for closed fracture (principal); S92.325A Nondisplaced fracture of second metatarsal bone, left foot, initial encounter for closed fracture; M19.072 Primary osteoarthritis, left ankle and foot; S93.692A Other sprain of left foot, initial encounter; M60.9 Myositis, unspecified; M67.874 Other specified disorders of tendon, left ankle and foot

== ENCOUNTER 2024-05-12 12:57 | Outpatient (CLI) | payer MEDICARE, BC ==
--- NOTE | 2024-05-12 18:23 | XRAY Report ---
PROCEDURE: Foot 3+V LT (Weight Bearing) INDICATIONS: FRACTURE OF UNSPECIFIED METATARSAL BONES,FOOT TECHNIQUE: 3 views of the foot were acquired. COMPARISON: 04/18/2024, 04/30/2024 MRI FINDINGS: Bones: Mild first MTP degenerative changes. Fracture deformity and underlying possible degenerative c hanges at the first and second metatarsal base, involving the region of the Lisfranc interval and fir st and second TMT joints. The fracture lucencies are more apparent compared to May radiographs. Partially visualized right foot with mild first TMT and MTP degenerative changes. Soft tissues: No suspicious calcifications. IMPRESSION: Compared to prior May radiograph, increased conspicuity of fracture fragments and lucency surrounding the first and second TMT joints, around Lisfranc interval, as assessed on MRI. Reviewed by: Michael Mancia MD on 05/12/2024 6:22 PM PDT Approved by: Michael Mancia MD on 05/12/2024 6:22 PM PDT Station ID: [id number]
== END 2024-05-12 12:58 | disposition home or self-care (01) ==
LOC: DI 12:57
PROVIDERS: ATTEND Physician Assistant Surgical
DX: S92.312A Displaced fracture of first metatarsal bone, left foot, initial encounter for closed fracture (principal); S92.322A Displaced fracture of second metatarsal bone, left foot, initial encounter for closed fracture; M19.072 Primary osteoarthritis, left ankle and foot